=== PATIENT | male | born 1965 | race Caucasian/White ===

== ENCOUNTER 2017-06-07 20:04 | Emergency (ER) | payer SELFPAY ==
[~2017-06-07] VITALS: Ht 170.2 cm; Wt 72.0 kg
[~2017-06-07 20:04] MED LIST: ALL220TA PO; CYCL5TAB PO; LORTA5 PO; NAPR550 PO
[2017-06-07 20:06] VITALS: BP 151/76; PULSE 79; RESP 14; TEMP 98.3; O2SAT 97
[2017-06-07] MEDS ORDERED: SODIUM CHLORIDE 0.9% IV ONE (20:45)
[2017-06-07] MEDS ORDERED: TETANUS/DIPHTHERIA TOXOID ADULT 0.5 ML VIAL IM ONE (20:45)
[2017-06-07] MEDS ORDERED: CEFUROXIME IV ONE (20:45)
[2017-06-07] MEDS ORDERED: CEFU1TAB20 PO (20:52)
[2017-06-07] MEDS ORDERED: HYDR-3533 PO ×2 (20:52→21:20)
--- NOTE | 2017-06-07 21:16 | PD ---
HPI Chief Complaint: Bite or Sting Time Seen by Provider: 20:40 Travel History International Travel<30 days: No Contact w/Intl Traveler<30days: No Traveled to known affect area: No History of Present Illness HPI 52-year-old male patient presents to the emergency department for evaluation Bite that occurred 3 days ago. The puncture pedro is on his right hand on the proximal aspect of the volar index finger. Patient complains of swelling and pain to the right hand. Patient is right-hand dominant. Patient denies any fevers, chills, malaise. Patient denies abdominal pain, nausea, vomiting or diarrhea. Patient denies chest pain or shortness of breath. Patient denies any other swelling or pain besides the right hand. The animal is known to the patient as belonging to his neighbor. Patient states he knows the animal and there is no risk for rabies. PFSH Past Medical History Diminished Hearing: No Immunizations Current: Yes Tetanus Vaccination: Never Vaccinated Influenza Vaccination: No Past Surgical History Tonsillectomy: Yes Social History Alcohol Use: No Tobacco Use: Yes (2 PPD) Substance Use: No Allergies-Medications (Allergen,Severity, Reaction): Coded Allergies: penicillin G (Unverified Allergy, Unknown, 06/07/17) Reported Meds & Prescriptions Reported Meds & Active Scripts Active Lortab (Hydrocodone-Acetaminophen) 5-325 Mg Tab 1 Tab PO Q6H PRN Cefuroxime (Cefuroxime Axetil) 500 Mg Tab 500 Mg PO BID 10 Days Review of Systems Except as stated in HPI: all other systems reviewed are Neg Physical Exam Narrative GENERAL: Well-nourished, well-developed 52-year-old male patient. Well- appearing in no acute distress. SKIN: Focused skin assessment warm/dry. HEAD: Normocephalic. Atraumatic EYES: No scleral icterus. No injection or drainage. NECK: Supple, trachea midline. No JVD or lymphadenopathy. CARDIOVASCULAR: Regular rate and rhythm without murmurs, gallops, or rubs. RESPIRATORY: Breath sounds equal bilaterally. No accessory muscle use. GASTROINTESTINAL: Abdomen soft, non-tender, nondistended. MUSCULOSKELETAL: Slight swelling noted to right hand. 2 puncture taylor noted to right index finger both located on the proximal aspect one on the dorsal side and the other on the volar side. Active range of motion with slight pain. 5 out of 5 strength in right hand noted. No signs of trauma ulnar, forearm, or or medial nerve. Sensation to right hand intact. Data Data Last Documented VS Orders Orders Hand, Complete ([id number]) (06/07/17 ) Wound Culture And Gram Stain (06/07/17 20:37) Tetanus/Diphtheria Tox Adult (Tetanus/Di (06/07/17 20:45) Cefuroxime Inj (Zinacef Inj) (06/07/17 20:45) MDM Medical Decision Making Medical Screen Exam Complete: Yes Emergency Medical Condition: Yes Medical Record Reviewed: Yes Differential Diagnosis Cat Bite versus cellulitis versus Pasteurella multocida infection Narrative Course 52-year-old male patient presents to emergency room for evaluation of a cat bite that occurred approximately 3 days ago. The puncture of the bite is located on the proximal area of the volar aspect of the right index finger. The patient denies any fevers, chills or malaise. The patient denies any chest pain or shortness of breath. The patient denies any abdominal pain, nausea, vomiting or diarrhea. There is no other pain or swelling to any other aspects of the body except the right hand where the bite occurred. The patient tried to self treat the swelling of his right hand by making a small incision with a razor earlier today and pouring peroxide into the incision. The small incision that was made with a razor is on the proximal aspect on the dorsal side of the right index finger. X-ray of the right hand, wound culture obtained with I&D ordered and pending. Cefuroxime 1500mg IV antibiotics ordered. Tetanus vaccine updated. Patient is discharged home with prescription for cefuroxime 500 mg twice a day 10 days for infection and prescription for Lortab prescription for pain management. Patient instructed to take full course of antibiotics as prescribed. Patient given strict instructions to return to emergency department with any signs or symptoms of infection due to the high risk of infection associated with bites. Patient states he understands and is comfortable with the plan of care. Procedures Procedure Narrative INCISION AND DRAINAGE OF BITE WOUND: The area was prepped and was sterilely draped. A subcutaneous wheal of 1% Xylocaine with a total number 1.5 mL was used to anesthetize the area properly. A number 11 scalpel was used to make a 0.5 cm incision across the proximal aspect of the volar index finger of the right hand. Cultures were obtained. Scripts Hydrocodone-Acetaminophen (Lortab) 5-325 Mg Tab 1 TAB PO Q6H Y for PAIN, #12 TAB 0 Refills Prov: Marisa Portillo DO 06/07/17 Cefuroxime (Cefuroxime) 500 Mg Tab 500 MG PO BID for Infection for 10 Days, #20 TAB 0 Refills Prov: Debora Callahan 06/07/17 Debora Callahan Jun 07, 2017 21:16
--- NOTE | 2017-06-07 21:41 | RADRPT ---
EXAM DATE/TIME: 06/07/2017 21:32 [facility] COMPARISON: No previous studies available for comparison. INDICATIONS : Inflammation and pain on 2nd digit, right hand. Patient was bit by cat on 2nd digit, near PIPJ. MEDICAL HISTORY : None. SURGICAL HISTORY : None. ENCOUNTER: Initial ACUITY: 4 - 6 days PAIN SCORE: 8/10 LOCATION: Right Hand, 2nd PIPJ FINDINGS: Three view examination of the right hand demonstrates no soft tissue swelling, dislocation, or fractu re. The carpal bones appear intact. The interphalangeal and metacarpophalangeal joints are intact. Bony mineralization is normal. Chronic appearing arthropathy with flexion deformity seen of the little finger distal interphalangeal joint. CONCLUSION: No fracture, subluxation or radiopaque foreign body of the pointer finger. Chico Mojica MD on June 07, 2017 at 21:39 Board Certified Radiologist. This report was verified electronically.
== END 2017-06-07 22:31 | disposition home or self-care (01) ==
LOC: EDTENT 20:04
DX: S61.250A Open bite of right index finger without damage to nail, initial encounter (principal); W55.01XA Bitten by cat, initial encounter; Z23 Encounter for immunization
CPT/HCPCS: 10060; 73130; 87070; 87205; 90471; 90714; 96374; 99284; J0697; 96372

== ENCOUNTER 2018-06-04 20:34 | Inpatient (IN) ==
--- NOTE | 2018-06-04 22:17 | XR ---
EXAM DATE: 06/04/2018 10:13 PM EDT AGE/SEX: 53 years / Male INDICATIONS: . Short of breath, evaluate for mass. CLINICAL DATA: This is the patient's initial encounter. Patient reports that signs and symptoms have been present for 3 months and indicates a pain score of 3/10. MEDICAL/SURGICAL HISTORY: None. None. COMPARISON: No prior exams available for comparison. FINDINGS: PA and lateral views the chest were obtained and demonstrate areas of dense consolidation in the righ t upper lobe with multiple cavitary regions. The consolidation abuts the minor fissure. There is apic al pleural parenchymal changes also present. There are nodular areas of consolidation and apparent ca vitation in the left upper lobe as well. On the lateral examination there are small cavitary The hear t size is within normal limits. The bony structures are intact. CONCLUSION: Dense consolidation in the right upper lobe with cavitary areas as well as nodular areas with cavitar y appearance in the left lung is well. Evaluation with chest CT with contrast is recommended. Electronically signed by: Dima Reid MD 06/04/2018 10:16 PM EDT
[2018-06-04 23:19] LABS: Baso % (Auto) 0.4 % (0.0-2.0); Eos % (Auto) 0.2 % (0.0-4.0); Hematocrit 37.8 % (39.0-51.0); Hemoglobin 12.6 gm/dL (13.0-17.0); Lymph # (Auto) 0.6 th/mm3 (1.0-4.8); Lymph % (Auto) 5.8 % (9.0-44.0); Mean Corpuscular HGB Conc 33.2 % (32.0-36.0); Mean Corpuscular Hemoglobin 27.6 pg (27.0-34.0); Mean Corpuscular Volume 83.1 fL (80.0-100.0); Mean Platelet Volume 7.7 fL (7.0-11.0); Mono # (Auto) 0.3 th/mm3 (0.0-0.9); Mono % (Auto) 2.5 % (0.0-8.0); Neut # (Auto) 9.2 th/mm3 (1.8-7.7); Neut % (Auto) 91.1 % (16.0-70.0); Platelet Count 534 th/mm3 (150-450); Red Blood Count 4.55 mil/mm3 (4.50-5.90); Red Cell Distribution Width 16.2 % (11.6-17.2); White Blood Count 10.1 th/mm3 (4.0-11.0)
[2018-06-04 23:44] LABS: Alanine Aminotransferase 18 U/L (12-78); Albumin 3.1 g/dL (3.4-5.0); Anion Gap 9 meq/L (5-15); Aspartate Aminotransferase 14 U/L (15-37); Blood Urea Nitrogen 9 mg/dL (7-18); Calcium 9.2 mg/dL (8.5-10.1); Carbon Dioxide 27.1 meq/L (21.0-32.0); Chloride 102 meq/L (98-107); Glomerular Filtration Rate 86 mL/min (>89); Glucose,Random 118 mg/dL (74-106); Potassium 3.6 meq/L (3.5-5.1); Sodium 138 meq/L (136-145)
[2018-06-04 23:49] LABS: Alkaline Phosphatase 142 U/L (45-117); Total Protein 7.6 g/dL (6.4-8.2)
--- NOTE | 2018-06-05 02:49 | CT ---
EXAM DATE: 06/05/2018 2:17 AM EDT AGE/SEX: 53 years / Male INDICATIONS: Abnormal chest x-ray. Right upper lung mass. CLINICAL DATA: This is the patient's initial encounter. Patient reports that signs and symptoms have been present for 1 day and indicates a pain score of 0/10. MEDICAL/SURGICAL HISTORY: None. None. RADIATION DOSE: 4.11 CTDI (mGy) COMPARISON: No prior exams available for comparison. TECHNIQUE: Multiple contiguous axial images were obtained through the chest during bolus infusion of 75 ml Omnipaque 350 (iohexol) nonionic water-soluble contrast as a cumulative dose for multiple exa ms. Images were obtained in suspended respiration using multiple row detector helical technique. U sing automated exposure control and adjustment of the mA and/or kV according to patient size, radiati on dose was kept as low as reasonably achievable to obtain optimal diagnostic quality images. DICOM format image data is available electronically for review and comparison. FINDINGS: There is a dense area of consolidation as well as cavitation in the right upper lobe measuring up to 12.9 cm in cephalocaudad extent and about 5.4 cm transverse diameter. A small cavitary mass measuring 2.1 cm is present in the superior segment right lower lobe. There is multifocal patchy airspace dise ase in both lungs and fairly extensive distal airway disease. There is some cylindrical bronchiectasi s with peribronchial thickening. Distribution of disease is predominantly upper lobe. There is mild t o moderate underlying emphysema. There is right-sided hilar and some mediastinal adenopathy measuring up to around 2 cm in diameter. N o filling defects identified in the pulmonary arteries. No significant effusion. No acute findings in the upper abdomen. CONCLUSION: 1. Multifocal lung consolidation with large area of cavitation in the right upper lobe. There is als o underlying cylindrical bronchiectasis, peribronchial thickening and extensive distal airway disease . Primary differential diagnosis is infection, especially tuberculosis or atypical mycobacterial dise ase. Neoplasm much less likely. Emphysema present. Electronically signed by: Kirk Jerome MD 06/05/2018 2:48 AM EDT
--- NOTE | 2018-06-05 03:30 | ED ---
HPI General Chief complaint: Respiratory Symptoms Stated complaint: dec sent/cough Time Seen by Provider: 06/05/18 00:39 History of Present Illness HPI narrative: Patient is a 53-year-old man who says for 7 months he has had shortness of breath night sweats somewhat in the beginning back in October when he first noticed that his lungs felt more irritated he has one point took Augmentin 875 Augmentin twice daily for 9 days he reports he said he got better but now progressively has gotten worse and his losing weight he went to an urgent care today they did an x-ray and said that he should come to the ER for further treatment. Patient arrives saying they had sent him from urgent care for a CAT scan. Patient has no fever he tells how he painted a deck with chemicals back in October and at that time is when he first noticed his lungs were getting worse and then losing weight. He denies being in skilled nursing he denies being in the denies any risk factor for TB he has not traveled overseas. He does report weight loss. In the ER he is satting 99 on room heart rate is normal he is afebrile he has no other significant past medical history and denies risk factors for TB... CT chest is ordered Related Data Home Medications Medication Instructions Recorded Confirmed No Known Home Medications 06/05/18 06/05/18 Allergies Allergy/AdvReac Type Severity Reaction Status Date / Time penicillin G Allergy Unknown Vomiting Unverified 06/04/18 21:46 [facility] Medical History Medical History Medical history unknown (Acute) Surgical History Surgical History Hx of tonsillectomy (Acute) Social History Social History Substance History: No History of Abuse Smoking Status: Current every day smoker Tobacco Type: Cigarettes How Often Do You Have a Drink Containing Alcohol: Monthly or less Recent Travel in [facility] within the Last 8 Weeks: No Recent Out of Country Travel within the Last 8 Weeks: No Immunization History Tetanus Immunization: >5 Years Hx Influenza Vaccine This Season: No Exam Narrative Exam Narrative: GENERAL: pt is awake alert no distress SKIN: Warm and dry. HEAD: Atraumatic. Normocephalic. EYES: Pupils equal and round. No scleral icterus. No injection or drainage. ENT: No nasal bleeding or discharge. Mucous membranes pink and moist. NECK: Trachea midline. No JVD. CARDIOVASCULAR: Regular rate and rhythm. RESPIRATORY: No accessory muscle use. right lung cracks and wheeze heard O2 sat 98 on RA GASTROINTESTINAL: Abdomen soft, non-tender, nondistended. Hepatic and splenic margins not palpable. MUSCULOSKELETAL: Extremities without clubbing, cyanosis, or edema. No obvious deformities. NEUROLOGICAL: Awake and alert. No obvious cranial nerve deficits. Motor grossly within normal limits. Five out of 5 muscle strength in the arms and legs. Normal speech. PSYCHIATRIC: Appropriate mood and affect; insight and judgment normal. Course Initial Documented Vital Signs Temperature 98 F 06/04/18 21:41 Pulse Rate 69 06/04/18 21:41 Respiratory Rate 16 06/04/18 21:41 Blood Pressure 120/58 L 06/04/18 21:41 Pulse Oximetry 98 06/04/18 21:41 Last Documented Vital Signs Temperature 98 F 06/04/18 21:41 Pulse Rate 50 L 06/05/18 05:09 Respiratory Rate 12 06/05/18 05:09 Blood Pressure 107/75 06/05/18 05:09 Pulse Oximetry 98 06/05/18 05:09 Medical Decision Making MDM Narrative Medical decision making narrative: CT shows what to be a cavitation lesion with surrounding blebs highly suspicious for TB is what the reading is less likely lung CA patient is made aware started on Levaquin IV and azithromycin patient is put in isolation for droplet precaution and isolation . Need consult pulmonary and acid fast resp aspirate to r/u TB Medical Screen Exam Complete: Yes Emergency Medical Condition: Yes Differential Diagnosis Differential Diagnosis: Patient is a 53-year-old male coming in saying that he is having shortness of breath cough losing weight differential diagnosis includes lung CA versus tuberculosis versus other type of staph strep cavitation lesion lung atypical pneumonias infectious versus Lab Data Result diagrams: 06/04/18 22:20 06/04/18 22:20 Lab Results 06/04/18 06/04/18 Range/Units 22:20 22:20 WBC 10.1 (4.0-11.0) th/mm3 RBC 4.55 (4.50-5.90) mil/mm3 Hgb 12.6 L (13.0-17.0) gm/dL Hct 37.8 L (39.0-51.0) % MCV 83.1 (80.0-100.0) fL MCH 27.6 (27.0-34.0) pg MCHC 33.2 (32.0-36.0) % RDW 16.2 (11.6-17.2) % Plt Count 534 H (150-450) th/mm3 MPV 7.7 (7.0-11.0) fL Neut % (Auto) 91.1 H (16.0-70.0) % Lymph % (Auto) 5.8 L (9.0-44.0) % Carver % (Auto) 2.5 (0.0-8.0) % Eos % (Auto) 0.2 (0.0-4.0) % Baso % (Auto) 0.4 (0.0-2.0) % Neut # (Auto) 9.2 H (1.8-7.7) th/mm3 Lymph # (Auto) 0.6 L (1.0-4.8) th/mm3 Carver # (Auto) 0.3 (0.0-0.9) th/mm3 Eos # (Auto) 0.0 (0.0-0.4) th/mm3 Baso # (Auto) 0.0 (0.0-0.2) th/mm3 WBC Differential . Differential Comment Auto diff final Sodium 138 (136-145) meq/L Potassium 3.6 (3.5-5.1) meq/L Chloride 102 (98-107) meq/L Carbon Dioxide 27.1 (21.0-32.0) meq/L Anion Gap 9 (5-15) meq/L BUN 9 (7-18) mg/dL Creatinine 0.92 (0.60-1.30) mg/dL Estimated GFR 86 L (>89) mL/min Random Glucose 118 H (74-106) mg/dL Calcium 9.2 (8.5-10.1) mg/dL Total Bilirubin 0.3 (0.2-1.0) mg/dL AST 14 L (15-37) U/L ALT 18 (12-78) U/L Alkaline Phosphatase 142 H (45-117) U/L Troponin I Less than 0.02 L (0.02-0.05) ng/mL Total Protein 7.6 (6.4-8.2) g/dL Albumin 3.1 L (3.4-5.0) g/dL Imaging Data Radiologist's impression: Chest X-Ray 06/04/18 21:49 CONCLUSION: Dense consolidation in the right upper lobe with cavitary areas as well as nodular areas with cavitary appearance in the left lung is well. Evaluation with chest CT with contrast is recommended. Chest CT 06/05/18 01:13 CONCLUSION: 1. Multifocal lung consolidation with large area of cavitation in the right upper lobe. There is also underlying cylindrical bronchiectasis, peribronchial thickening and extensive distal airway disease. Primary differential diagnosis is infection, especially tuberculosis or atypical mycobacterial disease. Neoplasm much less likely. Emphysema present. Discharge Plan Discharge Disposition Patient Disposition: 30 Still Patient Physicians Team ED Provider: Tino Gerard Primary Care Provider: Primary Care Elyssa Wynne Rxs /Orders / Referrals /Forms Prescriptions: No Action No Known Home Medications RF: 0 Discharge Interventions Interventions: Vital Signs Last Done: 06/05/18 05:09 Status ED Status: With Doctor
[2018-06-05] MEDS ORDERED: Azithromycin Inj 500 MG in Sodium Chlor 0.9% Inj 250 ML IV.SIG SCH (04:00)
[2018-06-05] MEDS ORDERED: Acetaminophen 325 MG Tablet PO PRN (06:17)
[2018-06-05] MEDS ORDERED: Tuberculin PPD 5 UNITS/0.1 ML Syringe I-DERMAL ONE (08:00)
[2018-06-05] MEDS: Sod Chloride 0.9% Inj 1,000 ML IV.CONT SCH ×2 (08:13→19:24)
--- NOTE | 2018-06-05 13:10 | P.CONID ---
History of Present Illness Service: Infectious Disease Consult date: 06/05/18 Requesting Physician: Torres Sahu Reason for Consult: Evaluation and Mment of cavitatory lung disease ? Tuberculosis. Primary Care Provider: No Primary Care Physician History of Present Illness: Mr. Wan is a 53-year-old male who is the patient has been associated with exposure to chemicals such as those need for epoxy and other special types of samira and driveways. He also has worked with cement in the past. Patient denies any travel outside country for pleasure or any services. He reports no contact with patients with tuberculosis. He endorses a 1 ppd history for at least 40 years. He denies prior h/o COPD or lung problems. He denies any family history of lung problems. With this background patient presents to the ED due to an abnormal CXR. Patient reports for last 6 months or so he has been having shortness of breath, cough with expectoration and feeling unwell. He complains of productive cough of yellow phlegm, shortness of breath with wheezing, intermittent fever and chills, diaphoresis, anorexia, low energy and weight loss of about 20-25 pounds. No history of personal h/o tuberculosis, IV drug abuse or incarceration. 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 A day prior to admission he went to the urgent care because of worsening cough with throat irritation and was sent to the emergency room because of abnormal chest x-ray which showed cavitation in the right apical area. Infectious Disease was consulted for evaluation and Mment of cavitary lung disease possible tuberculosis or secondary infection. Review of Systems All other systems reviewed negative except as stated in HPI PMF - History History Provided By: Patient - Medical History Medical History: Medical History (Last Reviewed 06/05/18 @ 16:38 by Torres Sahu MD) Medical history unknown - Surgical History Surgical History: Surgical History (Last Reviewed 06/05/18 @ 16:38 by Torres Sahu MD) Hx of tonsillectomy - Family History Family History: Family History (Last Updated 06/05/18 @ 16:38 by Torres Sahu MD) Other No pertinent family history - Tobacco History Tobacco Use In Past 30 Days: Yes Smoking Status: Current every day smoker Tobacco Type: Cigarettes - Alcohol History How Often Do You Have a Drink Containing Alcohol: Monthly or less - Substance Use History Substance History: No History of Abuse - Travel History Recent Travel in the [place] Within the Last 8 Weeks: No Recent Travel Out of the Country Within the Last 8 Weeks: No - Immunization History Tetanus Immunization: >5 Years Hx Influenza Vaccine This Season: No Medications and Allergies Active Medications: Active Medications Acetaminophen (Tylenol) 650 mg PO Q4H PRN PRN Reason: Temp > 100.4 Albuterol (Albuterol Neb (Prn)) 2.5 mg NEB Q2HR NEB PRN PRN Reason: SHORTNESS OF BREATH Albuterol (Duoneb Neb (Mesfin)) 1 ampul NEB QID NEB MESFIN Sodium Chloride (Ns Inj) 1,000 mls @ 100 mls/hr IV.CONT .Q10H MESFIN Stop: 06/05/18 23:59 Last Admin: 06/05/18 08:13 Dose: 100 mls/hr Dextrose/Sodium Chloride (D5w/1/2 Ns Inj) 1,000 mls @ 30 mls/hr IV.CONT .Q24H MESFIN Ondansetron HCl (Zofran Inj) 4 mg IV.PUSH Q6H PRN PRN Reason: NAUSEA OR VOMITING Skin Test Antigens (Skin Test Result) 1 each OTHER Q24H MESFIN Stop: 06/08/18 08:01 Sodium Chloride (Ns Flush) 2 ml IV.FLUSH BID [facility] Allergies Allergy/AdvReac Type Severity Reaction Status Date / Time penicillin G Allergy Unknown Vomiting Verified 06/05/18 07:55 Home Medications Medication Instructions Recorded Confirmed Type No Known Home Medications 06/05/18 06/05/18 History Exam Vital signs: Vital Signs 06/04/18 21:41 06/05/18 00:43 06/05/18 05:09 Temperature 98 F Pulse Rate 69 51 L 50 L Respiratory Rate 16 16 12 Blood Pressure 120/58 L 127/72 107/75 Pulse Oximetry 98 99 98 06/05/18 08:14 06/05/18 11:00 Temperature 97.6 F Pulse Rate 54 L 58 L Respiratory Rate 20 18 Blood Pressure 106/66 106/56 L Pulse Oximetry 99 98 Intake & Output 06/04/18 06/05/18 06/05/18 18:59 06:59 18:59 Intake Total 150 / 150 250 / 250 Output Total 100 / 100 Balance 150 / 150 150 / 150 Weight 63.503 kg Intake: IV 150 / 150 250 / 250 Azithromycin Inj 500 MG In NS 250 / 250 Inj 250 ML @ 250 mls/hr IV.SIG Q24H [facility] Rx#:[id number] Levaquin 750 mg Premix Inj 150 150 / 150 ML @ 100 mls/hr IV.SIG ONCE ONE Rx#:[id number] Output: Urine 100 / 100 Other: # Voids 1 Narrative: GENERAL: Thin built well-developed, not in acute distress SKIN: Cool and dry, no generalized rash No cervical or axillary LN aniceto. HEAD: Atraumatic. Normocephalic. No temporal or scalp tenderness. EYES: Pupils equal round and reactive. Scleral icterus. No injection or drainage. No petechia ENT: Nothing abnormal detected NECK: Trachea midline. Supple, nontender, no meningeal signs. CARDIOVASCULAR: HS audible. RESPIRATORY: Occ wheezing. Bilateral AE decreased in bases. GASTROINTESTINAL: Abdomen soft nontender. MUSCULOSKELETAL: Extremities without clubbing, cyanosis. NEUROLOGICAL: Alert oriented 3. Nonfocal. Psych cooperative IV line sites ok. Results - Labs CBC & Chem 7: 06/05/18 13:12 06/04/18 22:20 Labs: Laboratory Results - last 24 hr 06/04/18 06/04/18 22:20 22:20 WBC 10.1 RBC 4.55 Hgb 12.6 L Hct 37.8 L MCV 83.1 MCH 27.6 MCHC 33.2 RDW 16.2 Plt Count 534 H MPV 7.7 Neut % (Auto) 91.1 H Lymph % (Auto) 5.8 L [place] % (Auto) 2.5 Eos % (Auto) 0.2 Baso % (Auto) 0.4 Neut # (Auto) 9.2 H Lymph # (Auto) 0.6 L [place] # (Auto) 0.3 Eos # (Auto) 0.0 Baso # (Auto) 0.0 WBC Differential . Differential Comment Auto diff final Sodium 138 Potassium 3.6 Chloride 102 Carbon Dioxide 27.1 Anion Gap 9 BUN 9 Creatinine 0.92 Estimated GFR 86 L Random Glucose 118 H Calcium 9.2 Total Bilirubin 0.3 AST 14 L ALT 18 Alkaline Phosphatase 142 H Troponin I Less than 0.02 L Total Protein 7.6 Albumin 3.1 L - Imaging Impressions Chest X-Ray 06/04/18 21:49 CONCLUSION: Dense consolidation in the right upper lobe with cavitary areas as well as nodular areas with cavitary appearance in the left lung is well. Evaluation with chest CT with contrast is recommended. Chest CT 06/05/18 01:13 CONCLUSION: 1. Multifocal lung consolidation with large area of cavitation in the right upper lobe. There is also underlying cylindrical bronchiectasis, peribronchial thickening and extensive distal airway disease. Primary differential diagnosis is infection, especially tuberculosis or atypical mycobacterial disease. Neoplasm much less likely. Emphysema present. Assessment and Plan - Plan Cavitary lung disease differential diagnosis includes emphysematous lungs with secondary infection, tuberculosis, possible atypical mycobacterial infections or other fungal infections such as mold. Rule out tuberculosis Possible secondary pneumonia from pooling of bacteria in the cavities Chronic smoking history History of occupational exposure to epoxy as well as other agents. History of weight loss, decreased appetite, and an indolent infection, rule out malignancy Recommendations Discontinue all antibiotics as he is clinically stable Azithromycin is one of 1 of the agents for treatment of REJI Discontinue all antituberculosis medications If clinical change overnight start Cefepime IV and Vanco IV, Levaquin. marv De Jesus Pulm: he will get bronchoscopy. Asked him to add PCP stain request by pathology in addition to all usual cultures Consented pt for HIV he agrees Check Hepatitis profile. If possible get sputum for AFB stain and culture and send for MTB PCR to help with isolation status. Continue airborne isolation for now. Check CRP, ESR. Follow cultures Follow clinically. dw pt differential diagnosis and plan marv De Jesus
--- NOTE | 2018-06-05 13:30 | ECG ---
Date Performed: 06/04/2018 Time Performed: 22:29:15 PTAGE: 53 years EKG: SINUS BRADYCARDIA WITH SINUS ARRHYTHMIA BORDERLINE RIGHT AXIS DEVIATION BORDERLINE ECG NO PREVIOUS TRACING DOCTOR: Olman Kirkland Interpretating Date/Time 06/05/2018 13:28:44
[2018-06-05 14:02] LABS: Baso % (Auto) 0.2 % (0.0-2.0); Hematocrit 36.7 % (39.0-51.0); Hemoglobin 11.8 gm/dL (13.0-17.0); Lymph # (Auto) 0.8 th/mm3 (1.0-4.8); Lymph % (Auto) 12.8 % (9.0-44.0); Mean Corpuscular Hemoglobin 26.9 pg (27.0-34.0); Mean Corpuscular Volume 83.8 fL (80.0-100.0); Mean Platelet Volume 7.4 fL (7.0-11.0); Mono # (Auto) 0.5 th/mm3 (0.0-0.9); Mono % (Auto) 7.5 % (0.0-8.0); Neut # (Auto) 4.8 th/mm3 (1.8-7.7); Neut % (Auto) 79.5 % (16.0-70.0); Platelet Count 517 th/mm3 (150-450); Red Blood Count 4.38 mil/mm3 (4.50-5.90); Red Cell Distribution Width 16.1 % (11.6-17.2); White Blood Count 6.1 th/mm3 (4.0-11.0)
[2018-06-05] MEDS ORDERED: Benzonatate 100 MG Capsule PO PRN (16:35)
--- NOTE | 2018-06-05 16:44 | P.HP ---
History of Present Illness Primary Care Physician: No Primary Care Physician Chief Complaint: Cough History of Present Illness: This is a 53-year-old male with history of tobacco use. He presents to the emergency department because of abnormal chest x-ray. [facility] for the past 5 months has been battling respiratory symptoms. He complains of productive cough of yellow phlegm, shortness of breath with wheezing, intermittent fever and chills, diaphoresis, anorexia, low energy and weight loss of about 20-25 pounds. No history of tuberculosis, sick contacts, recent travel and incarceration. 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 Yesterday he went to the urgent care because of worsening cough with throat irritation and was sent to the emergency room because of abnormal chest x-ray which showed cavitation in the right apical area. All other systems reviewed negative Inpatient Certification: I certify that the inpatient services were ordered in accordance with Medicare regulations governing the order. This includes certification that hospital inpatient services are reasonable and necessary and in the case of services not specified as inpatient-only under 42 CFR 419.22(n), that they are appropriately provided as inpatient services in accordance to with the 2-midnight benchmark under 43 CFR 412.3(e) Estimated Total Length of Stay (Days): 2 Plans for Post Hospital Care: Home Review of Systems All other systems reviewed negative except as stated in [facility] - History History Provided By: Patient - Medical History Medical History: Medical History (Last Reviewed 06/05/18 @ 16:38 by Torres Sahu MD) Medical history unknown - Surgical History Surgical History: Surgical History (Last Reviewed 06/05/18 @ 16:38 by Torres Sahu MD) Hx of tonsillectomy - Family History Family History: Family History (Last Updated 06/05/18 @ 16:38 by Torres Sahu MD) Other No pertinent family history - Tobacco History Tobacco Use In Past 30 Days: Yes Smoking Status: Current every day smoker Tobacco Type: Cigarettes - Alcohol History How Often Do You Have a Drink Containing Alcohol: Monthly or less - Substance Use History Substance History: No History of Abuse - Travel History Recent Travel in the [place] Within the Last 8 Weeks: No Recent Travel Out of the Country Within the Last 8 Weeks: No - Immunization History Tetanus Immunization: >5 Years Hx Influenza Vaccine This Season: No Medications and Allergies Active Medications: Active Medications Acetaminophen (Tylenol) 650 mg PO Q4H PRN PRN Reason: Temp > 100.4 Albuterol (Albuterol Neb (Prn)) 2.5 mg NEB Q2HR NEB PRN PRN Reason: SHORTNESS OF BREATH Albuterol (Duoneb Neb (Mesfin)) 1 ampul NEB QID NEB MESFIN Last Admin: 06/05/18 13:24 Dose: Not Given Sodium Chloride (Ns Inj) 1,000 mls @ 100 mls/hr IV.CONT .Q10H [facility] Stop: 06/05/18 23:59 Last Admin: 06/05/18 08:13 Dose: 100 mls/hr Dextrose/Sodium Chloride (D5w/1/2 Ns Inj) 1,000 mls @ 30 mls/hr IV.CONT .Q24H [facility] Ondansetron HCl (Zofran Inj) 4 mg IV.PUSH Q6H PRN PRN Reason: NAUSEA OR VOMITING Skin Test Antigens (Skin Test Result) 1 each OTHER Q24H [facility] Stop: 06/08/18 08:01 Sodium Chloride (Ns Flush) 2 ml IV.FLUSH BID [facility] Allergies Allergy/AdvReac Type Severity Reaction Status Date / Time penicillin G Allergy Unknown Vomiting Verified 06/05/18 07:55 Home Medications Medication Instructions Recorded Confirmed Type No Known Home Medications 06/05/18 06/05/18 History Exam Vital signs: Vital Signs 06/04/18 21:41 06/05/18 00:43 06/05/18 05:09 Temperature 98 F Pulse Rate 69 51 L 50 L Respiratory Rate 16 16 12 Blood Pressure 120/58 L 127/72 107/75 Pulse Oximetry 98 99 98 06/05/18 08:14 06/05/18 11:00 06/05/18 13:00 Temperature 97.6 F Pulse Rate 54 L 58 L 59 L Respiratory Rate 20 18 16 Blood Pressure 106/66 106/56 L 109/61 Pulse Oximetry 99 98 98 Intake & Output 06/04/18 06/05/18 06/05/18 18:59 06:59 18:59 Intake Total 150 / 150 250 / 250 Output Total 100 / 100 Balance 150 / 150 150 / 150 Weight 63.503 kg Intake: IV 150 / 150 250 / 250 Azithromycin Inj 500 MG In NS 250 / 250 Inj 250 ML @ 250 mls/hr IV.SIG Q24H [facility] Rx#:[id number] Levaquin 750 mg Premix Inj 150 150 / 150 ML @ 100 mls/hr IV.SIG ONCE ONE Rx#:[id number] Output: Urine 100 / 100 Other: # Voids 1 Narrative: GENERAL: Well-developed in no distress SKIN: Warm and dry. HEAD: Atraumatic. Normocephalic. EYES: Pupils equal and round. No scleral icterus. No injection or drainage. ENT: No nasal bleeding or discharge. Mucous membranes pink and moist. NECK: Trachea midline. No JVD. CARDIOVASCULAR: Regular rate and rhythm. RESPIRATORY: No accessory muscle use. Clear to auscultation. Decreased breath sounds equal bilaterally. GASTROINTESTINAL: Abdomen soft, non-tender, nondistended. MUSCULOSKELETAL: Extremities without clubbing, cyanosis, or edema. No obvious deformities. NEUROLOGICAL: Awake and alert. No obvious cranial nerve deficits. Motor grossly within normal limits. Five out of 5 muscle strength in the arms and legs. Normal speech. PSYCHIATRIC: Appropriate mood and affect; insight and judgment normal. Results - Labs CBC & Chem 7: 06/05/18 13:12 06/04/18 22:20 Labs: Laboratory Results - last 24 hr 06/04/18 06/04/18 06/05/18 22:20 22:20 13:12 WBC 10.1 6.1 RBC 4.55 4.38 L Hgb 12.6 L 11.8 L Hct 37.8 L 36.7 L MCV 83.1 83.8 MCH 27.6 26.9 L MCHC 33.2 32.0 RDW 16.2 16.1 Plt Count 534 H 517 H MPV 7.7 7.4 Neut % (Auto) 91.1 H 79.5 H Lymph % (Auto) 5.8 L 12.8 [place] % (Auto) 2.5 7.5 Eos % (Auto) 0.2 0.0 Baso % (Auto) 0.4 0.2 Neut # (Auto) 9.2 H 4.8 Lymph # (Auto) 0.6 L 0.8 L [place] # (Auto) 0.3 0.5 Eos # (Auto) 0.0 0.0 Baso # (Auto) 0.0 0.0 WBC Differential . . Differential Comment Auto diff final Auto diff final APTT Sodium 138 Potassium 3.6 Chloride 102 Carbon Dioxide 27.1 Anion Gap 9 BUN 9 Creatinine 0.92 Estimated GFR 86 L Random Glucose 118 H Calcium 9.2 Total Bilirubin 0.3 AST 14 L ALT 18 Alkaline Phosphatase 142 H Troponin I Less than 0.02 L Total Protein 7.6 Albumin 3.1 L 06/05/18 13:12 WBC RBC Hgb Hct MCV MCH MCHC RDW Plt Count MPV Neut % (Auto) Lymph % (Auto) [place] % (Auto) Eos % (Auto) Baso % (Auto) Neut # (Auto) Lymph # (Auto) [place] # (Auto) Eos # (Auto) Baso # (Auto) WBC Differential Differential Comment APTT 31.4 H Sodium Potassium Chloride Carbon Dioxide Anion Gap BUN Creatinine Estimated GFR Random Glucose Calcium Total Bilirubin AST ALT Alkaline Phosphatase Troponin I Total Protein Albumin - Imaging Impressions Chest X-Ray 06/04/18 21:49 CONCLUSION: Dense consolidation in the right upper lobe with cavitary areas as well as nodular areas with cavitary appearance in the left lung is well. Evaluation with chest CT with contrast is recommended. Chest CT 06/05/18 01:13 CONCLUSION: 1. Multifocal lung consolidation with large area of cavitation in the right upper lobe. There is also underlying cylindrical bronchiectasis, peribronchial thickening and extensive distal airway disease. Primary differential diagnosis is infection, especially tuberculosis or atypical mycobacterial disease. Neoplasm much less likely. Emphysema present. Caprini VTE Risk Assessment Caprini VTE Risk Assessment: No/Low Risk (score <= 1) Caprini Risk Assessment Model: Point Value = 1 Point Value = 2 Point Value = 3 Point Value = 5 Age 41-60 Minor surgery BMI > 25 kg/m2 Swollen legs Varicose veins or History of unexplained or recurrent spontaneous Oral contraceptives or hormone replacement Sepsis (< 1 month) Serious lung disease, including pneumonia (< 1 month) Abnormal pulmonary function Acute myocardial infarction Congestive heart failure (< 1 month) History of inflammatory bowel disease Medical patient at bed rest Age 61-74 Arthroscopic surgery Major open surgery (> 45 min) Laparoscopic surgery (> 45 min) Malignancy Confined to bed (> 72 hours) Immobilizing plaster cast Central venous access Age >= 75 History of VTE Family history of VTE Factor V Leiden Prothrombin [id number] Lupus anticoagulant Anticardiolipin antibodies Elevated serum homocysteine Heparin-induced thrombocytopenia Other congenital or acquired thrombophilia Stroke (< 1 month) Elective arthroplasty Hip, pelvis, or leg fracture Acute spinal cord injury (< 1 month) Prophylaxis Regimen: Total Risk Factor Score Risk Level Prophylaxis Regimen 0-1 Low Early ambulation 2 Moderate Order ONE of the following: *Sequential Compression Device (SCD) *Heparin 5000 units SQ BID 3-4 Higher Order ONE of the following medications: *Heparin 5000 units SQ TID *Enoxaparin/Lovenox 40 mg SQ daily (WT < 150 kg, CrCl > 30 mL/min) *Enoxaparin/Lovenox 30 mg SQ daily (WT < 150 kg, CrCl > 10-29 mL/min) *Enoxaparin/Lovenox 30 mg SQ BID (WT < 150 kg, CrCl > 30 mL/min) AND/OR *Sequential Compression Device (SCD) 5 or more Highest Order ONE of the following medications: *Heparin 5000 units SQ TID (Preferred with Epidurals) *Enoxaparin/Lovenox 40 mg SQ daily (WT < 150 kg, CrCl > 30 mL/min) *Enoxaparin/Lovenox 30 mg SQ daily (WT < 150 kg, CrCl > 10-29 mL/min) *Enoxaparin/Lovenox 30 mg SQ BID (WT < 150 kg, CrCl > 30 mL/min) AND *Sequential Compression Device (SCD) Assessment and Plan - Plan This is a 53-year-old male smoker who presents with chronic respiratory symptoms consisting of productive cough of yellow phlegm, shortness of breath with wheezing, intermittent fever and chills, diaphoresis, anorexia and weight loss. Chest x-ray independently reviewed by me showed right lung consolidation with cavitation. Chest CT with multifocal lung consolidation with large area of cavitation in the right upper lobe. Underlying cylindrical bronchiectasis, peribronchial thickening and extensive distal airway disease. Pulmonary TB suspect. Patient will be admitted for further evaluation and treatment. He will be in isolation. Obtain sputum studies for AFB, MTB PCR sputum and consult infectious disease and pulmonary service, will need bronchoscopy. COPD exacerbation. Tobacco cessation. Nebulization. DVT prophylaxis with SCD.
--- NOTE | 2018-06-05 19:12 | MB ---
cc: Rick Lobato MD DATE: 06/05/2018 REASON FOR CONSULTATION: Bilateral cavitary lung infiltrates. HISTORY OF PRESENT ILLNESS: This is a 53-year-old white male who has been admitted through the emergency room with complaints of persistent cough, yellow expectoration, shortness of breath, wheezing, or orthopnea. The patient was also running some fevers and was sweating at night and had lost weight up to 25 pounds in the past 4 months. He states that his appetite has been poor. 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 These included urethane, epoxy, and other building materials. He was in a closed environment while he was exposed to the fumes, and he was not wearing any respirator at the time. He states that his present complaints started after using that material. He has had no hemoptysis, but his chest x-ray that was done upon admission showed evidence of bilateral lung infiltrates with cavitation in the right apex as well as the left lung zone. PAST MEDICAL HISTORY: Significant for tonsillectomy remotely. Denies any history for lung disease that he knows of. He has no history of hypertension or diabetes. FAMILY HISTORY: Unknown. The patient states he was from his parents at a young age. HABITS: The patient smokes about a pack per day, has done so for over 35 years. Drinks alcohol moderately. Works at a construction site. ALLERGIES: NONE LISTED. REVIEW OF SYSTEMS: The patient was lost weight. He has postnasal drip, cough, wheezing. He has night sweats and fevers. He has epigastric distress, nausea, loss of appetite. He has had no GI bleed. No hemoptysis. No leg or calf muscle pains. He has no urinary symptoms or flank pains. There is no depression or anxiety. Complains of generalized weakness and malaise. PHYSICAL EXAMINATION: GENERAL: This is an averagely built, middle-aged, white male who is pale, in no acute distress. VITAL SIGNS: Blood pressure 125/60, pulse is 72, respirations 16, temperature 98.2. HEENT: Head is normocephalic. Pupils are reactive and equal. Tongue moist. Throat is injected. Nasal mucosa is clear. NECK: Supple, no bruits or thyroid enlargement or lymphadenopathy. CHEST: Distant breath sounds. There are few coarse wheezes scattered in the left lung field. HEART: The heart sounds are regular, S1 and S2 with no murmur. No S3. ABDOMEN: Soft, scaphoid, without masses. No organomegaly or tenderness. Bowel sounds are active. EXTREMITIES: No lesions, no edema, no calf tenderness. Reflexes are 1+ with no gross motor deficits. Cranial nerves are grossly intact. SKIN: No lesions observed. IMPRESSION: 1. Bilateral cavitary pulmonary infiltrates, rule out atypical infections like tuberculosis or fungal disease. 2. Possible chronic obstructive pulmonary disease with emphysema. 3. Rule out malignancy. 4. Nicotine dependency. PLAN: The patient has been advised that a bronchoscopy will be scheduled to evaluate the lower airways and get bronchial washings and the brushings. Nebulized DuoNeb solution added four times daily. He is already on antibiotic therapy that was started and will be monitored by the infectious disease service. We will get a skin test for TB, and a coagulation profile will be ordered. Pulmonary function study to be done when he is clinically stable. IV fluids for hydration today. The risks of bronchoscopy including bleeding, pneumothorax, respiratory failure, etc., were discussed. Blood gas study will be done on room air and oxygen supplementation added at 2 liters nasal cannula. Thank you, Dr. Sahu, for this consultation. V. Natalie Lobato MD VJD/chris , 06:25 PM , 06:39 PM
[2018-06-05] MEDS: guaiFENesin 600 MG ER Tablet PO SCH (21:00)
[2018-06-06 08:27] LABS: Baso % (Auto) 0.3 % (0.0-2.0); Eos % (Auto) 0.3 % (0.0-4.0); Hematocrit 36.4 % (39.0-51.0); Hemoglobin 11.8 gm/dL (13.0-17.0); Lymph # (Auto) 1.4 th/mm3 (1.0-4.8); Lymph % (Auto) 14.9 % (9.0-44.0); Mean Corpuscular HGB Conc 32.5 % (32.0-36.0); Mean Corpuscular Hemoglobin 27.2 pg (27.0-34.0); Mean Corpuscular Volume 83.6 fL (80.0-100.0); Mean Platelet Volume 7.6 fL (7.0-11.0); Mono # (Auto) 0.6 th/mm3 (0.0-0.9); Mono % (Auto) 6.9 % (0.0-8.0); Neut # (Auto) 7.3 th/mm3 (1.8-7.7); Neut % (Auto) 77.6 % (16.0-70.0); Platelet Count 505 th/mm3 (150-450); Red Blood Count 4.36 mil/mm3 (4.50-5.90); Red Cell Distribution Width 16.2 % (11.6-17.2); White Blood Count 9.4 th/mm3 (4.0-11.0)
[2018-06-06 08:44] LABS: Anion Gap 10 meq/L (5-15); Blood Urea Nitrogen 18 mg/dL (7-18); Carbon Dioxide 26.6 meq/L (21.0-32.0); Chloride 106 meq/L (98-107); Glomerular Filtration Rate Greater Than 89 mL/min (>89); Glucose,Random 78 mg/dL (74-106); Potassium 4.1 meq/L (3.5-5.1); Sodium 143 meq/L (136-145)
[2018-06-06] MEDS ORDERED: Sodium Chlor 0.9% Inj 500 ML IV.SIG ONE (09:00)
[2018-06-06] MEDS: guaiFENesin 600 MG ER Tablet PO SCH ×2 (09:16→20:36)
[2018-06-06] MEDS: Dextrose 5%/NaCl 0.45% Inj 1,000 ML IV.CONT SCH ×2 (09:50→14:31)
[2018-06-06 10:31] LABS: Hepatitits B Surface Antigen Nonreactive (Nonreactive)
--- NOTE | 2018-06-06 10:32 | P.PNIM ---
Subjective Interval history: Patient reports is feeling okay. No shortness of breath at rest. No chest pain. Mild cough. Physical Exam Vital signs: Vital Signs 06/05/18 11:00 06/05/18 13:00 06/05/18 16:00 Temperature 97.5 F L Pulse Rate 58 L 59 L 44 L Respiratory Rate 18 16 20 Blood Pressure 106/56 L 109/61 109/55 L Pulse Oximetry 98 98 97 06/05/18 20:00 06/05/18 21:02 06/06/18 00:00 Temperature 97.3 F L 97.7 F Pulse Rate 83 52 L Respiratory Rate 18 Blood Pressure 134/61 93/56 L Pulse Oximetry 98 96 98 06/06/18 00:27 06/06/18 04:00 06/06/18 08:00 Temperature 97.8 F 97.6 F Pulse Rate 50 L 50 L 59 L Respiratory Rate 18 17 Blood Pressure 95/63 L 92/53 L 91/51 L Pulse Oximetry 98 97 06/06/18 10:20 Temperature 96.4 F L Pulse Rate 52 L Respiratory Rate 18 Blood Pressure 103/58 L Pulse Oximetry 100 Intake & Output 06/05/18 06/06/18 06/06/18 18:59 06:59 18:59 Intake Total 250 / 250 1000 / 1000 Output Total 100 / 100 Balance 150 / 150 1000 / 1000 Weight 56.2 kg 54.4 kg Intake: IV 250 / 250 1000 / 1000 NS Inj 1,000 ML @ 100 mls/hr IV 1000 / 1000 .CONT .Q10H [facility] Rx#:[id number] Azithromycin Inj 500 MG In NS 250 / 250 Inj 250 ML @ 250 mls/hr IV.SIG Q24H [facility] Rx#:[id number] Output: Urine 100 / 100 Other: # Voids 3 2 Date of Last Bowel Movement 06/05/18 Weight On Admission 56.2 kg Narrative: GENERAL: This is a well-nourished, well-developed patient, in no apparent distress. CARDIOVASCULAR: Normal rate and regular rhythm without murmurs, gallops, or rubs. RESPIRATORY: Good respiratory efforts. Breath sounds equal and clear to auscultation bilaterally. GASTROINTESTINAL: Abdomen soft, non-tender, non-distended. Normal active bowel sounds MUSCULOSKELETAL: Extremities without cyanosis, or edema. NEURO: Alert & Oriented x4 to person, place, time, situation. Moves all ext x4 PSYCH: Appropriate mood and affect. Results - Labs CBC & Chem 7: 06/06/18 05:22 06/06/18 05:22 Laboratory Results - last 24 hr 06/05/18 06/05/18 06/06/18 13:12 13:12 05:22 WBC 6.1 RBC 4.38 L Hgb 11.8 L Hct 36.7 L MCV 83.8 MCH 26.9 L MCHC 32.0 RDW 16.1 Plt Count 517 H MPV 7.4 Neut % (Auto) 79.5 H Lymph % (Auto) 12.8 [place] % (Auto) 7.5 Eos % (Auto) 0.0 Baso % (Auto) 0.2 Neut # (Auto) 4.8 Lymph # (Auto) 0.8 L [place] # (Auto) 0.5 Eos # (Auto) 0.0 Baso # (Auto) 0.0 WBC Differential . Differential Comment Auto diff final APTT 31.4 H Sodium Potassium Chloride Carbon Dioxide Anion Gap BUN Creatinine Estimated GFR Random Glucose Calcium C-Reactive Protein Hep Bs Antigen Nonreactive 06/06/18 06/06/18 05:22 05:22 WBC 9.4 D RBC 4.36 L Hgb 11.8 L Hct 36.4 L MCV 83.6 MCH 27.2 MCHC 32.5 RDW 16.2 Plt Count 505 H MPV 7.6 Neut % (Auto) 77.6 H Lymph % (Auto) 14.9 [place] % (Auto) 6.9 Eos % (Auto) 0.3 Baso % (Auto) 0.3 Neut # (Auto) 7.3 Lymph # (Auto) 1.4 [place] # (Auto) 0.6 Eos # (Auto) 0.0 Baso # (Auto) 0.0 WBC Differential . Differential Comment Auto diff final APTT Sodium 143 Potassium 4.1 Chloride 106 Carbon Dioxide 26.6 Anion Gap 10 BUN 18 Creatinine 0.74 Estimated GFR Greater than 89 Random Glucose 78 Calcium 9.0 C-Reactive Protein 1.30 H Hep Bs Antigen Assessment and Plan - Plan 53-year-old male smoker who presents with chronic respiratory symptoms consisting of productive cough of yellow phlegm, shortness of breath with wheezing, intermittent fever and chills, diaphoresis, anorexia and weight loss. Chest x-ray revealed right lung consolidation with cavitation. Chest CT with multifocal lung consolidation with large area of cavitation in the right upper lobe. Underlying cylindrical bronchiectasis, peribronchial thickening and extensive distal airway disease. Differential diagnoses include TB, REJI, organizing bacterial infection. - Appreciate pulmonology and infectious disease following. Patient is status post bronchoscopy. Bronchial washing cultures pending. Sputum studies for AFB, MTB PCR sputum. -HIV and hepatitis negative. COPD: Supplemental oxygen as needed. Nebs as needed. DVT prophylaxis with SCD. Discharge Planning: Continue workup.
[2018-06-06 11:04] LABS: Hepatitis A IgM Antibody Nonreactive (Nonreactive)
--- NOTE | 2018-06-06 11:48 | ECG ---
Date Performed: 06/05/2018 Time Performed: 17:43:06 PTAGE: 53 years EKG: SINUS BRADYCARDIA BORDERLINE ECG PREVIOUS TRACING : 06/04/2018 22.29 DOCTOR: Eh Geiger Interpretating Date/Time 06/06/2018 11:47:33
--- NOTE | 2018-06-06 11:59 | MP ---
cc: Rick Lobato MD DATE OF OPERATION: 06/06/2018 PROCEDURE PERFORMED: Fiberoptic bronchoscopy with biopsy, brushings, and washings. PREOPERATIVE DIAGNOSIS: Cavitary right upper lobe lung infiltrate. POSTOPERATIVE DIAGNOSIS: Cavitary right upper lobe lung infiltrate. ANESTHESIA: General. SURGEON: Rick Lobato MD PROCEDURE AND FINDINGS: The patient was intubated under general anesthesia, following which, the Olympus IT 180 bronchoscope was used to visualize the bronchi. The scope was advanced via the endotracheal tube into the trachea; trachea, miri appeared normal. The scope was then advanced into the left mainstem and left upper lobe segmental bronchi. The left upper lobe segmental bronchi demonstrated mucoid secretions with mild endobronchitis, but no endobronchial lesions were seen. Saline washings were done. The scope was then advanced into the left lower lobe segmental bronchi. These bronchi demonstrated mucoid secretions and moderate endobronchitis, but no endobronchial mass was seen. Saline washings and lavage were done. The scope was then advanced into the right mainstem and right upper lobe segmental bronchi. The right upper lobe segmental bronchi demonstrated moderate endobronchitis with mucosal ridging and mucosal edema with thick mucoid secretions and plugs. These were suctioned out. The underlying bronchi showed moderate endobronchitis but no endobronchial mass was seen. Brushings were done for cytology and micro from the right upper lobe area. Biopsies were done as well. Minimal bleeding was observed, controlled with saline solution and saline lavage was carried out from the right upper lobe. The scope was also advanced into the right middle and right lower lobe segmental bronchi. These bronchi demonstrated mild endobronchitis with mucoid secretions and mucus plugs. These were suctioned out. Saline washings and lavage were done. No endobronchial mass was seen in the right lower lobe area. The procedure was then terminated. The patient tolerated the procedure well. Rick Lobato MD VJD/eileen , 11:31 AM , 11:38 AM
--- NOTE | 2018-06-06 12:22 | XR ---
EXAM DATE: 06/06/2018 12:19 PM EDT AGE/SEX: 53 years / Male INDICATIONS: Post bronchoscopy. Patient has a cough. CLINICAL DATA: This is the patient's initial encounter. Patient reports that signs and symptoms have been present for 1 day and indicates a pain score of 0/10. MEDICAL/SURGICAL HISTORY: None. Tonsillectomy. COMPARISON: [facility] [place] CHEST W CONTRAST, 06/05/2018. . FINDINGS: There are abnormal nodular opacities seen throughout both lungs with a large cavitary mass in the rig ht upper lobe with thick wall. The heart size is normal. The osseous structures are intact. CONCLUSION: Stable appearance of the chest. Electronically signed by: Jhony Whaley MD 06/06/2018 12:20 PM EDT
[2018-06-07] MEDS: guaiFENesin 600 MG ER Tablet PO SCH ×2 (08:21→22:28)
--- NOTE | 2018-06-07 09:42 | P.PNIM ---
Subjective Interval history: Patient reports is feeling okay. Occasional cough. Breathing comfortably. Physical Exam Vital signs: Vital Signs 06/06/18 10:20 06/06/18 11:38 06/06/18 11:45 Temperature 96.4 F L 97.7 F Pulse Rate 52 L 79 75 Respiratory Rate 18 22 20 Blood Pressure 103/58 L 91/55 L 95/54 L Pulse Oximetry 100 97 100 06/06/18 12:00 06/06/18 12:15 06/06/18 16:00 Temperature 97.3 F L Pulse Rate 65 63 58 L Respiratory Rate 18 18 17 Blood Pressure 97/58 L 97/56 L 98/54 L Pulse Oximetry 98 99 100 06/06/18 17:15 06/06/18 19:34 06/06/18 19:45 Temperature 97.5 F L Pulse Rate 60 70 60 Respiratory Rate 14 15 18 Blood Pressure 111/61 Pulse Oximetry 98 100 06/06/18 20:00 06/07/18 00:00 06/07/18 04:00 Temperature 98.5 F 98.2 F Pulse Rate 59 L 59 L Respiratory Rate 18 18 Blood Pressure 101/55 L 91/54 L Pulse Oximetry 100 98 96 06/07/18 07:49 06/07/18 08:00 Temperature 98 F Pulse Rate 60 53 L Respiratory Rate 14 16 Blood Pressure 99/56 L Pulse Oximetry 96 Intake & Output 06/06/18 06/07/18 06/07/18 18:59 06:59 18:59 Intake Total 3000 / 3000 Balance 3000 / 3000 Weight 54.6 kg Intake: IV 1500 / 1500 D5W/1/2 NS Inj 1,000 ML @ 30 1000 / 1000 mls/hr IV.CONT .Q24H [facility] Rx#: [id number] NS Inj 500 ML @ As Directed IV. 500 / 500 SIG BOLUS ONE Rx#:[id number] Oral 1500 / 1500 Other: # Voids 2 1 Date of Last Bowel Movement 06/06/18 06/06/18 Narrative: GENERAL: This is a well-nourished, well-developed patient, in no apparent distress. CARDIOVASCULAR: Normal rate and regular rhythm without murmurs, gallops, or rubs. RESPIRATORY: Good respiratory efforts. Breath sounds equal and clear to auscultation bilaterally. Results - Labs CBC & Chem 7: 06/06/18 05:22 06/06/18 05:22 Laboratory Results - last 24 hr 06/05/18 06/06/18 06/06/18 14:52 05:22 05:22 Hepatitis A IgM Ab Nonreactive Hep Bs Antigen Nonreactive Hep B Core IgM Ab Nonreactive Hep C IgG Ab Nonreactive HIV 1&2 Ab/P24 Ag 4thGn Nonreactive M.tuberculosis DNA (PCR) Detected H Rifampin Resistance Not detected 06/06/18 14:52 Hepatitis A IgM Ab Hep Bs Antigen Hep B Core IgM Ab Hep C IgG Ab HIV 1&2 Ab/P24 Ag 4thGn M.tuberculosis DNA (PCR) Cancelled Rifampin Resistance Cancelled Microbiology 06/06/18 11:21 Bronchial Brushings - Right Upper Lobe Fungal Smear - Final 06/06/18 11:21 Bronchial Washings - Right Upper Lobe Fungal Smear - Final No fungal elements seen 06/06/18 11:21 Bronchial - Right Upper Lobe Gram Stain - Final 06/06/18 10:10 Sputum - Expectorated Sputum Gram Stain - Final - Imaging Impressions Chest X-Ray 06/06/18 11:28 CONCLUSION: Stable appearance of the chest. Assessment and Plan - Plan 53-year-old male smoker who presents with chronic respiratory symptoms consisting of productive cough of yellow phlegm, shortness of breath with wheezing, intermittent fever and chills, diaphoresis, anorexia and weight loss. Chest x-ray revealed right lung consolidation with cavitation. Chest CT with multifocal lung consolidation with large area of cavitation in the right upper lobe. Underlying cylindrical bronchiectasis, peribronchial thickening and extensive distal airway disease. PCR is positive for TB. - Discussed with infectious disease. The patient will be started on TB treatment. The health department will be notified. Discussed with case management. - Appreciate pulmonology and infectious disease following. Patient is status post bronchoscopy. Bronchial washing cultures pending. Sputum studies for AFB, -HIV and hepatitis negative. COPD: Supplemental oxygen as needed. Nebs as needed. DVT prophylaxis with SCD. Discharge Planning: Probable discharge in the next 1-2 days. Needs to ensure the patient can get to be medications.
--- NOTE | 2018-06-07 13:39 | P.PNID ---
Subjective Remarks: Mr. Wan is a 53-year-old male who is the patient has been associated with exposure to chemicals such as those need for epoxy and other special types of samira and driveways. He also has worked with cement in the past. Patient denies any travel outside country for pleasure or any services. He reports no contact with patients with tuberculosis. He endorses a 1 ppd history for at least 40 years. He denies prior h/o COPD or lung problems. He denies any family history of lung problems. With this background patient presents to the ED due to an abnormal CXR. Patient reports for last 6 months or so he has been having shortness of breath, cough with expectoration and feeling unwell. He complains of productive cough of yellow phlegm, shortness of breath with wheezing, intermittent fever and chills, diaphoresis, anorexia, low energy and weight loss of about 20-25 pounds. No history of personal h/o tuberculosis, IV drug abuse or incarceration. 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 A day prior to admission he went to the urgent care because of worsening cough with throat irritation and was sent to the emergency room because of abnormal chest x-ray which showed cavitation in the right apical area. Infectious Disease was consulted for evaluation and Mment of cavitary lung disease possible tuberculosis or secondary infection. Overnight events reviewed No fevers No rash No diarrhea Antibiotics: None Lines: Lines ok Past Medical History: reviewed Allergies/Adverse Reactions: Allergies penicillin G Allergy (Unknown, Verified 06/05/18 07:55) Vomiting Objective Vital Signs 06/06/18 16:00 06/06/18 17:15 06/06/18 19:34 Temperature 97.3 F L Pulse Rate 58 L 60 70 Respiratory Rate 17 14 15 Blood Pressure 98/54 L Pulse Oximetry 100 98 06/06/18 19:45 06/06/18 20:00 06/07/18 00:00 Temperature 97.5 F L 98.5 F Pulse Rate 60 59 L Respiratory Rate 18 18 Blood Pressure 111/61 101/55 L Pulse Oximetry 100 100 98 06/07/18 04:00 06/07/18 07:49 06/07/18 08:00 Temperature 98.2 F 98 F Pulse Rate 59 L 60 53 L Respiratory Rate 18 14 16 Blood Pressure 91/54 L 99/56 L Pulse Oximetry 96 96 06/07/18 12:00 Temperature 98 F Pulse Rate 84 Respiratory Rate 17 Blood Pressure 100/57 L Pulse Oximetry 96 Intake & Output 06/06/18 06/07/18 06/07/18 18:59 06:59 18:59 Intake Total 3000 / 3000 Balance 3000 / 3000 Weight 54.6 kg Intake: IV 1500 / 1500 D5W/1/2 NS Inj 1,000 ML @ 30 1000 / 1000 mls/hr IV.CONT .Q24H [facility] Rx#: [id number] NS Inj 500 ML @ As Directed IV. 500 / 500 SIG BOLUS ONE Rx#:[id number] Oral 1500 / 1500 Other: # Voids 2 1 Date of Last Bowel Movement 06/06/18 06/06/18 06/06/18 11:21 Bronchial Brushings - Right Upper Lobe Fungal Smear - Final 06/06/18 11:21 Bronchial Brushings - Right Upper Lobe Fungal Culture - Pending 06/06/18 11:21 Bronchial Washings - Right Upper Lobe Fungal Smear - Final No fungal elements seen 06/06/18 11:21 Bronchial Washings - Right Upper Lobe Fungal Culture - Pending 06/06/18 11:21 Bronchial - Right Upper Lobe Gram Stain - Final 06/06/18 11:21 Bronchial - Right Upper Lobe Bronchial Culture - Pending 06/06/18 10:10 Sputum - Expectorated Sputum Gram Stain - Final 06/06/18 10:10 Sputum - Expectorated Sputum Sputum Culture - Pending 06/06/18 14:52 Sputum - Expectorated Sputum Acid Fast Bacilli Smear - Pending 06/06/18 14:52 Sputum - Expectorated Sputum Mycobacterial Culture - Pending 06/06/18 11:21 Bronchial Brushings - Right Upper Lobe Bronchial [place] Culture - Pending 06/06/18 11:21 Bronchial Washings - Right Upper Lobe Acid Fast Bacilli Smear - Pending 06/06/18 11:21 Bronchial Washings - Right Upper Lobe Mycobacterial Culture - Pending 06/06/18 11:21 Bronchial Brushings - Right Upper Lobe Acid Fast Bacilli Smear - Pending 06/06/18 11:21 Bronchial Brushings - Right Upper Lobe Mycobacterial Culture - Pending 06/06/18 10:10 Sputum - Expectorated Sputum Acid Fast Bacilli Smear - Pending 06/06/18 10:10 Sputum - Expectorated Sputum Mycobacterial Culture - Pending Lab - Hematology Results 06/05/18 06/06/18 13:12 05:22 WBC 6.1 9.4 D RBC 4.38 L 4.36 L Hgb 11.8 L 11.8 L Hct 36.7 L 36.4 L MCV 83.8 83.6 MCH 26.9 L 27.2 MCHC 32.0 32.5 RDW 16.1 16.2 Plt Count 517 H 505 H MPV 7.4 7.6 Neut % (Auto) 79.5 H 77.6 H Lymph % (Auto) 12.8 14.9 [place] % (Auto) 7.5 6.9 Eos % (Auto) 0.0 0.3 Baso % (Auto) 0.2 0.3 Neut # (Auto) 4.8 7.3 Lymph # (Auto) 0.8 L 1.4 [place] # (Auto) 0.5 0.6 Eos # (Auto) 0.0 0.0 Baso # (Auto) 0.0 0.0 WBC Differential . . Differential Comment Auto diff final Auto diff final Lab - Chemistry Results 06/06/18 05:22 Sodium 143 Potassium 4.1 Chloride 106 Carbon Dioxide 26.6 Anion Gap 10 BUN 18 Creatinine 0.74 Estimated GFR Greater than 89 Random Glucose 78 Calcium 9.0 C-Reactive Protein 1.30 H Imaging: ITS Impressions Chest CT 06/05/18 01:13 CONCLUSION: 1. Multifocal lung consolidation with large area of cavitation in the right upper lobe. There is also underlying cylindrical bronchiectasis, peribronchial thickening and extensive distal airway disease. Primary differential diagnosis is infection, especially tuberculosis or atypical mycobacterial disease. Neoplasm much less likely. Emphysema present. Chest X-Ray 06/06/18 11:28 CONCLUSION: Stable appearance of the chest. Physical Exam: GENERAL: Thin built well-developed, not in acute distress SKIN: Cool and dry, no generalized rash No cervical or axillary LN aniceto. HEAD: Atraumatic. Normocephalic. No temporal or scalp tenderness. EYES: Pupils equal round and reactive. Scleral icterus. No injection or drainage. No petechia ENT: Nothing abnormal detected NECK: Trachea midline. Supple, nontender, no meningeal signs. CARDIOVASCULAR: HS audible. RESPIRATORY: Occ wheezing. Bilateral AE decreased in bases. GASTROINTESTINAL: Abdomen soft nontender. MUSCULOSKELETAL: Extremities without clubbing, cyanosis. NEUROLOGICAL: Alert oriented 3. Nonfocal. Psych cooperative IV line sites ok. Assessment and Plan - Plan Cavitary lung disease differential diagnosis includes emphysematous lungs with secondary infection, tuberculosis, possible atypical mycobacterial infections or other fungal infections such as mold. Rule out tuberculosis Possible secondary pneumonia from pooling of bacteria in the cavities Chronic smoking history History of occupational exposure to epoxy as well as other agents. History of weight loss, decreased appetite, and an indolent infection, rule out malignancy Recommendations Start 4 drug anti TB regimen will need 9-12 months treatment. Follow cultures Follow clinically. Will need Case management help for follow up with health dept. dw Dr.Rimpel Oumar De Jesus
--- NOTE | 2018-06-07 19:20 | P.PN ---
Subjective Interval history: has a cough and some wheezing. Low grade fever Physical Exam Vital signs: Vital Signs 06/06/18 19:34 06/06/18 19:45 06/06/18 20:00 Temperature 97.5 F L Pulse Rate 70 60 Respiratory Rate 15 18 Blood Pressure 111/61 Pulse Oximetry 98 100 100 06/07/18 00:00 06/07/18 04:00 06/07/18 07:49 Temperature 98.5 F 98.2 F Pulse Rate 59 L 59 L 60 Respiratory Rate 18 18 14 Blood Pressure 101/55 L 91/54 L Pulse Oximetry 98 96 06/07/18 08:00 06/07/18 12:00 06/07/18 15:13 Temperature 98 F 98 F Pulse Rate 53 L 84 61 Respiratory Rate 16 17 16 Blood Pressure 99/56 L 100/57 L Pulse Oximetry 96 96 06/07/18 16:00 Temperature 97.9 F Pulse Rate 63 Respiratory Rate 16 Blood Pressure 113/60 Pulse Oximetry 100 Intake & Output 06/07/18 06/07/18 06/08/18 06:59 18:59 06:59 Intake Total 660 / 660 Balance 660 / 660 Weight 54.6 kg Intake: Oral 660 / 660 Other: # Voids 1 5 Date of Last Bowel Movement 06/06/18 06/06/18 # Bowel Movements 0 Narrative: GENERAL: This is a well-nourished, well-developed patient, in no apparent distress. CARDIOVASCULAR: Normal rate and regular rhythm without murmurs, gallops, or rubs. GENERAL: SKIN: Warm and dry. HEAD: Atraumatic. Normocephalic. EYES: Pupils equal and round. No scleral icterus. No injection or drainage. ENT: No nasal bleeding or discharge. Mucous membranes pink and moist. NECK: Trachea midline. No JVD. CARDIOVASCULAR: Regular rate and rhythm. RESPIRATORY: No accessory muscle use. Wheezes in upper chest and occ crackles at bases. Breath sounds equal bilaterally. GASTROINTESTINAL: Abdomen soft, non-tender, nondistended. Hepatic and splenic margins not palpable. MUSCULOSKELETAL: Extremities without clubbing, cyanosis, or edema. No obvious deformities. NEUROLOGICAL: Awake and alert. No obvious cranial nerve deficits. Motor grossly within normal limits. Five out of 5 muscle strength in the arms and legs. Normal speech. PSYCHIATRIC: Appropriate mood and affect; insight and judgment normal. Results - Labs CBC & Chem 7: 06/06/18 05:22 06/06/18 05:22 Laboratory Results - last 24 hr 06/05/18 14:52 M.tuberculosis DNA (PCR) Detected H Microbiology 06/06/18 11:21 Bronchial Washings - Right Upper Lobe Acid Fast Bacilli Smear - Final Acid Fast Bacilli Seen 06/06/18 11:21 Bronchial Washings - Right Upper Lobe Mycobacterial Culture - Preliminary 06/06/18 11:21 Bronchial Brushings - Right Upper Lobe Acid Fast Bacilli Smear - Final No acid fast bacilli seen 06/06/18 10:10 Sputum - Expectorated Sputum Acid Fast Bacilli Smear - Final Acid Fast Bacilli Seen 06/06/18 14:52 Sputum - Expectorated Sputum Acid Fast Bacilli Smear - Final Acid Fast Bacilli Seen 06/06/18 11:21 Bronchial - Right Upper Lobe Gram Stain - Final 06/06/18 11:21 Bronchial - Right Upper Lobe Bronchial Culture - Preliminary No growth in 24 hours 06/06/18 11:21 Bronchial Brushings - Right Upper Lobe Bronchial [place] Culture - Preliminary No growth in 24 hours 06/06/18 10:10 Sputum - Expectorated Sputum Gram Stain - Final 06/06/18 10:10 Sputum - Expectorated Sputum Sputum Culture - Preliminary Heavy growth normal respiratory carlos at 24 hours 06/06/18 11:21 Bronchial Brushings - Right Upper Lobe Fungal Smear - Final 06/06/18 11:21 Bronchial Washings - Right Upper Lobe Fungal Smear - Final No fungal elements seen Assessment and Plan - Assessment (1) COPD (chronic obstructive pulmonary disease) Code(s): J44.9 - Chronic obstructive pulmonary disease, unspecified Status: Acute (2) Multilobar lung infiltrate Code(s): R91.8 - Other nonspecific abnormal finding of lung field Status: Acute (3) Cavitary lesion of lung Code(s): J98.4 - Other disorders of lung Status: Acute (4) Pulmonary tuberculosis with cavitation Code(s): A15.0 - Tuberculosis of lung Status: Acute - Plan 1. Cont antibiotics per ID,4 drugs. 2. Duonebs qid. 3. O2 2 L N/C 4. Robitussin 10 Cc QID PRN 5. await culture and sensitivity from bronch washing
[2018-06-07 19:51] LABS: TB1 Ag minus Nil Result -0.01 IU/mL
[2018-06-08 08:01] LABS: Hematocrit 37.3 % (39.0-51.0); Hemoglobin 12.5 gm/dL (13.0-17.0); Mean Corpuscular HGB Conc 33.5 % (32.0-36.0); Mean Corpuscular Hemoglobin 27.4 pg (27.0-34.0); Mean Corpuscular Volume 81.9 fL (80.0-100.0); Mean Platelet Volume 7.4 fL (7.0-11.0); Platelet Count 492 th/mm3 (150-450); Red Blood Count 4.55 mil/mm3 (4.50-5.90); Red Cell Distribution Width 16.7 % (11.6-17.2); White Blood Count 7.6 th/mm3 (4.0-11.0)
[2018-06-08 08:30] LABS: Alanine Aminotransferase 14 U/L (12-78); Albumin 2.7 g/dL (3.4-5.0); Anion Gap 9 meq/L (5-15); Aspartate Aminotransferase 14 U/L (15-37); Blood Urea Nitrogen 15 mg/dL (7-18); Calcium 8.7 mg/dL (8.5-10.1); Carbon Dioxide 26.9 meq/L (21.0-32.0); Chloride 102 meq/L (98-107); Glomerular Filtration Rate Greater Than 89 mL/min (>89); Glucose,Random 75 mg/dL (74-106); Potassium 4.2 meq/L (3.5-5.1); Sodium 138 meq/L (136-145)
[2018-06-08 08:33] LABS: Alkaline Phosphatase 108 U/L (45-117); Total Protein 6.6 g/dL (6.4-8.2)
[2018-06-08] MEDS: guaiFENesin 600 MG ER Tablet PO SCH ×2 (09:04→21:17)
--- NOTE | 2018-06-08 09:54 | P.PNIM ---
Subjective Interval history: Patient reports he is feeling better. He states he is coughing less. He is eager to leave the hospital. He states he is willing to pay for his TB medication until the health department receives the medications. Per the health department, the medications has been ordered but it may take 7-10 days to receive them. Physical Exam Vital signs: Vital Signs 06/07/18 12:00 06/07/18 15:13 06/07/18 16:00 Temperature 98 F 97.9 F Pulse Rate 84 61 63 Respiratory Rate 17 16 16 Blood Pressure 100/57 L 113/60 Pulse Oximetry 96 100 06/07/18 19:49 06/07/18 20:00 06/08/18 00:00 Temperature 98.5 F 98.5 F Pulse Rate 70 63 55 L Respiratory Rate 16 18 18 Blood Pressure 125/72 106/58 L Pulse Oximetry 96 99 95 06/08/18 04:00 06/08/18 08:00 06/08/18 08:43 Temperature 97.7 F 98.2 F Pulse Rate 55 L 62 Respiratory Rate 18 14 Blood Pressure 106/58 L 106/62 Pulse Oximetry 98 98 96 Intake & Output 06/07/18 06/08/18 06/08/18 18:59 06:59 18:59 Intake Total 660 / 660 Balance 660 / 660 Weight 53.9 kg Intake: Oral 660 / 660 Other: # Voids 5 3 Date of Last Bowel Movement 06/06/18 06/08/18 # Bowel Movements 0 Narrative: GENERAL: This is a well-nourished, well-developed patient, in no apparent distress. CARDIOVASCULAR: Normal rate and regular rhythm without murmurs, gallops, or rubs. RESPIRATORY: Good respiratory efforts. Breath sounds equal and clear to auscultation bilaterally. GASTROINTESTINAL: Abdomen soft, non-tender, non-distended. Normal active bowel sounds MUSCULOSKELETAL: Extremities without cyanosis, or edema. NEURO: Alert & Oriented x4 to person, place, time, situation. Moves all ext x4 PSYCH: Appropriate mood and affect. Results - Labs CBC & Chem 7: 06/08/18 06:57 06/08/18 06:57 Laboratory Results - last 24 hr 06/05/18 06/08/18 06/08/18 10:44 06:57 06:57 WBC 7.6 RBC 4.55 Hgb 12.5 L Hct 37.3 L MCV 81.9 MCH 27.4 MCHC 33.5 RDW 16.7 Plt Count 492 H MPV 7.4 Sodium 138 Potassium 4.2 Chloride 102 Carbon Dioxide 26.9 Anion Gap 9 BUN 15 Creatinine 0.82 Estimated GFR Greater than 89 Random Glucose 75 Calcium 8.7 Total Bilirubin 0.7 Direct Bilirubin 0.2 Indirect Bilirubin 0.5 AST 14 L ALT 14 Alkaline Phosphatase 108 Total Protein 6.6 D Albumin 2.7 L TB (QFT) Gold In Tube Negative TB Test (QFT) Nil 0.02 TB Test Mitogen - Nil 4.86 TB Test Antigen - Nil -0.01 Microbiology 06/06/18 11:21 Bronchial Washings - Right Upper Lobe Acid Fast Bacilli Smear - Final Acid Fast Bacilli Seen 06/06/18 11:21 Bronchial Washings - Right Upper Lobe Mycobacterial Culture - Preliminary 06/06/18 11:21 Bronchial Brushings - Right Upper Lobe Acid Fast Bacilli Smear - Final No acid fast bacilli seen 06/06/18 10:10 Sputum - Expectorated Sputum Acid Fast Bacilli Smear - Final Acid Fast Bacilli Seen 06/06/18 14:52 Sputum - Expectorated Sputum Acid Fast Bacilli Smear - Final Acid Fast Bacilli Seen 06/06/18 11:21 Bronchial - Right Upper Lobe Gram Stain - Final 06/06/18 11:21 Bronchial - Right Upper Lobe Bronchial Culture - Preliminary No growth in 24 hours 06/06/18 11:21 Bronchial Brushings - Right Upper Lobe Bronchial [place] Culture - Preliminary No growth in 24 hours 06/06/18 10:10 Sputum - Expectorated Sputum Gram Stain - Final 06/06/18 10:10 Sputum - Expectorated Sputum Sputum Culture - Preliminary Heavy growth normal respiratory carlos at 24 hours 06/06/18 11:21 Bronchial Brushings - Right Upper Lobe Fungal Smear - Final 06/06/18 11:21 Bronchial Washings - Right Upper Lobe Fungal Smear - Final No fungal elements seen Assessment and Plan - Plan 53-year-old male smoker who presents with chronic respiratory symptoms consisting of productive cough of yellow phlegm, shortness of breath with wheezing, intermittent fever and chills, diaphoresis, anorexia and weight loss. Chest x-ray revealed right lung consolidation with cavitation. Chest CT with multifocal lung consolidation with large area of cavitation in the right upper lobe. Underlying cylindrical bronchiectasis, peribronchial thickening and extensive distal airway disease. 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 - Discussed with infectious disease. The patient was started on treatment with 4 drugs regimen including ethambutol, rifampin, isoniazid, pyrazinamide. He was started on B6 supplements. The health department is on the case and he has signed all the necessary paperwork. The health department will be following him for his treatment. However they will not able to receive medications for another 7-10 days. The patient is willing to pay for his medications for the next 2 weeks until he can receive the supply from the health department. A prescription has been sent to his pharmacy. He was advised that he will not be able to leave the hospital without the medications on hand. He seems to be dedicated to complying with treatment and he understands the need to be strictly compliant with the medications. He will follow-up at the health department to continue treatment. - Appreciate pulmonology and infectious disease following. Patient is status post bronchoscopy. Bronchial washing cultures also positive for AFB -HIV and hepatitis negative. COPD: Supplemental oxygen as needed. Nebs as needed. DVT prophylaxis with SCD. Discharge Planning: Pending arrangements for discharge medications.
[2018-06-09 07:01] LABS: Albumin 2.7 g/dL (3.4-5.0)
[2018-06-09 07:06] LABS: Total Protein 6.7 g/dL (6.4-8.2)
[2018-06-09] MEDS: guaiFENesin 600 MG ER Tablet PO SCH ×2 (10:04→21:46)
--- NOTE | 2018-06-09 13:13 | P.PNIM ---
Subjective Interval history: Patient reports he is feeling better. He is coughing less. Sleeping better. States his pharmacy will be able to deliver the medications on Monday. Physical Exam Vital signs: Vital Signs 06/08/18 15:40 06/08/18 16:00 06/08/18 20:00 Temperature 97.9 F 97.6 F Pulse Rate 72 72 74 Respiratory Rate 18 16 18 Blood Pressure 126/74 110/65 Pulse Oximetry 96 100 06/08/18 21:15 06/09/18 00:00 06/09/18 04:00 Temperature 98.2 F 97.6 F Pulse Rate 83 66 70 Respiratory Rate 20 18 18 Blood Pressure 103/65 106/60 Pulse Oximetry 98 98 97 06/09/18 08:00 06/09/18 08:26 06/09/18 12:00 Temperature 97.8 F 98.1 F Pulse Rate 72 71 71 Respiratory Rate 16 16 14 Blood Pressure 118/60 101/68 Pulse Oximetry 98 97 99 Intake & Output 06/08/18 06/09/18 06/09/18 18:59 06:59 18:59 Weight 52.7 kg Other: # Voids 3 Date of Last Bowel Movement 06/08/18 Narrative: GENERAL: This is a well-nourished, well-developed patient, in no apparent distress. CARDIOVASCULAR: Normal rate and regular rhythm without murmurs, gallops, or rubs. RESPIRATORY: Good respiratory efforts. Breath sounds equal and clear to auscultation bilaterally. Results - Labs CBC & Chem 7: 06/08/18 06:57 06/08/18 06:57 Laboratory Results - last 24 hr 06/09/18 05:19 Total Bilirubin 0.3 Direct Bilirubin 0.1 Indirect Bilirubin 0.2 AST 15 ALT 15 Alkaline Phosphatase 120 H Total Protein 6.7 Albumin 2.7 L Microbiology 06/06/18 11:21 Bronchial - Right Upper Lobe Gram Stain - Final 06/06/18 11:21 Bronchial - Right Upper Lobe Bronchial Culture - Final No growth in 48 hours 06/06/18 11:21 Bronchial Brushings - Right Upper Lobe Bronchial [place] Culture - Final No growth in 48 hours 06/06/18 10:10 Sputum - Expectorated Sputum Gram Stain - Final 06/06/18 10:10 Sputum - Expectorated Sputum Sputum Culture - Final Heavy growth normal respiratory carlos Assessment and Plan - Plan 53-year-old male smoker who presents with chronic respiratory symptoms consisting of productive cough of yellow phlegm, shortness of breath with wheezing, intermittent fever and chills, diaphoresis, anorexia and weight loss. Chest x-ray revealed right lung consolidation with cavitation. Chest CT with multifocal lung consolidation with large area of cavitation in the right upper lobe. Underlying cylindrical bronchiectasis, peribronchial thickening and extensive distal airway disease. 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 - Discussed with infectious disease. The patient was started on treatment with 4 drugs regimen including ethambutol, rifampin, isoniazid, pyrazinamide. He was started on B6 supplements. The health department is on the case and he has signed all the necessary paperwork. The health department will be following him for his treatment. However they will not able to receive medications for another 7-10 days. The patient is willing to pay for his medications for the next 2 weeks until he can receive the supply from the health department. A prescription has been sent to his pharmacy. He was advised that he will not be able to leave the hospital without the medications on hand. He seems to be dedicated to complying with treatment and he understands the need to be strictly compliant with the medications. He will follow-up at the health department to continue treatment. -Check LFTs on Monday. - Appreciate pulmonology and infectious disease following. Patient is status post bronchoscopy. Bronchial washing cultures also positive for AFB -HIV and hepatitis negative. COPD: Supplemental oxygen as needed. Nebs as needed. DVT prophylaxis with SCD. Discharge Planning: Pending arrangements for discharge medications.
[2018-06-09] MEDS: Acetaminophen 325 MG Tablet PO PRN (14:00)
[2018-06-10] MEDS: Acetaminophen 325 MG Tablet PO PRN ×2 (06:14→22:55)
[2018-06-10] MEDS: guaiFENesin 600 MG ER Tablet PO SCH ×2 (08:40→22:54)
--- NOTE | 2018-06-10 11:17 | P.PNIM ---
Subjective Interval history: Patient reports his feeling better. Coughing less. Sleeping better. Physical Exam Vital signs: Vital Signs 06/09/18 12:00 06/09/18 16:00 06/09/18 20:00 Temperature 98.1 F 98.0 F 98.2 F Pulse Rate 71 64 72 Respiratory Rate 14 14 18 Blood Pressure 101/68 118/60 114/73 Pulse Oximetry 99 98 96 06/10/18 00:00 06/10/18 01:32 06/10/18 04:00 Temperature 98.0 F 97.7 F Pulse Rate 60 67 Respiratory Rate 18 18 18 Blood Pressure 110/60 101/61 Pulse Oximetry 98 97 06/10/18 04:57 06/10/18 07:00 06/10/18 08:00 Temperature 97.7 F Pulse Rate 72 Respiratory Rate 20 12 16 Blood Pressure 104/60 Pulse Oximetry 98 Intake & Output 06/09/18 06/10/18 06/10/18 18:59 06:59 18:59 Weight 54.4 kg Other: # Voids 3 Date of Last Bowel Movement 06/09/18 06/09/18 Narrative: GENERAL: This is a well-nourished, well-developed patient, in no apparent distress. CARDIOVASCULAR: Normal rate and regular rhythm without murmurs, gallops, or rubs. RESPIRATORY: Good respiratory efforts. Breath sounds equal and clear to auscultation bilaterally. Results - Labs CBC & Chem 7: 06/08/18 06:57 06/08/18 06:57 Assessment and Plan - Plan 53-year-old male smoker who presents with chronic respiratory symptoms consisting of productive cough of yellow phlegm, shortness of breath with wheezing, intermittent fever and chills, diaphoresis, anorexia and weight loss. Chest x-ray revealed right lung consolidation with cavitation. Chest CT with multifocal lung consolidation with large area of cavitation in the right upper lobe. Underlying cylindrical bronchiectasis, peribronchial thickening and extensive distal airway disease. 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 - Discussed with infectious disease. The patient was started on treatment with 4 drugs regimen including ethambutol, rifampin, isoniazid, pyrazinamide. He was started on B6 supplements. The health department is on the case and he has signed all the necessary paperwork. The health department will be following him for his treatment. However they will not able to receive medications for another 7-10 days. The patient is willing to pay for his medications for the next 2 weeks until he can receive the supply from the health department. A prescription has been sent to his pharmacy. He was advised that he will not be able to leave the hospital without the medications on hand. He seems to be dedicated to complying with treatment and he understands the need to be strictly compliant with the medications. He will follow-up at the health department to continue treatment. -Check LFTs tomorrow. - Plan for discharge tomorrow. Patient will have his medications delivered to his room by [facility]. - Appreciate pulmonology and infectious disease following. Patient is status post bronchoscopy. Bronchial washing cultures also positive for AFB -HIV and hepatitis negative. COPD: Supplemental oxygen as needed. Nebs as needed. DVT prophylaxis with SCD. Discharge Planning: Pending arrangements for discharge medications.
[2018-06-11 07:44] LABS: Alanine Aminotransferase 14 U/L (12-78); Albumin 2.9 g/dL (3.4-5.0); Anion Gap 11 meq/L (5-15); Aspartate Aminotransferase 12 U/L (15-37); Blood Urea Nitrogen 17 mg/dL (7-18); Calcium 9.1 mg/dL (8.5-10.1); Chloride 100 meq/L (98-107); Glomerular Filtration Rate Greater Than 89 mL/min (>89); Glucose,Random 73 mg/dL (74-106); Sodium 136 meq/L (136-145)
[2018-06-11 07:46] LABS: Alkaline Phosphatase 124 U/L (45-117)
[2018-06-11] MEDS: guaiFENesin 600 MG ER Tablet PO SCH (08:18)
--- NOTE | 2018-06-11 11:26 | P.PNIM ---
Subjective Interval history: PATIENT HAS COPD AND TB MAY BE ABLE TO DC TO HOME TODAY IF HEALTH DEPARTMENT AND PHARMACY ARE SET UP FOR MEDICATIONS [facility] RN AND PT AND CM LESS COUGH Physical Exam Vital signs: Vital Signs 06/10/18 13:07 06/10/18 15:50 06/10/18 20:00 Temperature 97.9 F 97.9 F 97.8 F Pulse Rate 61 66 67 Respiratory Rate 16 16 18 Blood Pressure 97/62 L 107/62 126/96 H Pulse Oximetry 99 98 99 06/11/18 00:00 06/11/18 02:37 06/11/18 04:00 Temperature 97.6 F 97.8 F Pulse Rate 60 69 Respiratory Rate 18 18 18 Blood Pressure 118/72 104/62 Pulse Oximetry 98 97 06/11/18 08:00 Temperature 97.6 F Pulse Rate 72 Respiratory Rate 16 Blood Pressure 112/73 Pulse Oximetry 98 Intake & Output 06/10/18 06/11/18 06/11/18 18:59 06:59 18:59 Intake Total 960 / 960 Balance 960 / 960 Weight 53.9 kg Intake: Oral 960 / 960 Other: # Voids 3 2 Date of Last Bowel Movement 06/09/18 06/10/18 06/10/18 # Bowel Movements 2 Narrative: GENERAL: Alert and oriented 3 talkative and cooperative thin appearing male SKIN: Warm and dry. HEAD: Atraumatic. Normocephalic. EYES: Pupils equal and round. No scleral icterus. No injection or drainage. EOMI ENT: No nasal bleeding or discharge. Mucous membranes pink and moist. Tongue is midline NECK: Trachea midline. No JVD. Supple CARDIOVASCULAR: Regular rate and rhythm. S1-S2 no S3 or S4 RESPIRATORY: No accessory muscle use. Clear to auscultation. Breath sounds equal bilaterally. GASTROINTESTINAL: Abdomen soft, non-tender, nondistended. Hepatic and splenic margins not palpable. MUSCULOSKELETAL: Extremities without clubbing, cyanosis, or edema. No obvious deformities. NEUROLOGICAL: Awake and alert. No obvious cranial nerve deficits. Motor grossly within normal limits. Five out of 5 muscle strength in the arms and legs. Normal speech. PSYCHIATRIC: Appropriate mood and affect; insight and judgment normal. Results - Labs CBC & Chem 7: 06/08/18 06:57 06/11/18 05:53 Laboratory Results - last 24 hr 06/11/18 05:53 Sodium 136 Potassium 4.0 Chloride 100 Carbon Dioxide 25.0 Anion Gap 11 BUN 17 Creatinine 0.82 Estimated GFR Greater than 89 Random Glucose 73 L Calcium 9.1 Total Bilirubin 0.4 Direct Bilirubin 0.1 Indirect Bilirubin 0.3 AST 12 L ALT 14 Alkaline Phosphatase 124 H Total Protein 7.0 Albumin 2.9 L - Imaging Chest X-Ray 06/04/18 21:49 CONCLUSION: Dense consolidation in the right upper lobe with cavitary areas as well as nodular areas with cavitary appearance in the left lung is well. Evaluation with chest CT with contrast is recommended. Chest CT 06/05/18 01:13 CONCLUSION: 1. Multifocal lung consolidation with large area of cavitation in the right upper lobe. There is also underlying cylindrical bronchiectasis, peribronchial thickening and extensive distal airway disease. Primary differential diagnosis is infection, especially tuberculosis or atypical mycobacterial disease. Neoplasm much less likely. Emphysema present. Chest X-Ray 06/06/18 11:28 CONCLUSION: Stable appearance of the chest. - Procedures DATE OF OPERATION: 06/06/2018 PROCEDURE PERFORMED: Fiberoptic bronchoscopy with biopsy, brushings, and washings. PREOPERATIVE DIAGNOSIS: Cavitary right upper lobe lung infiltrate. POSTOPERATIVE DIAGNOSIS: Cavitary right upper lobe lung infiltrate. ANESTHESIA: General. SURGEON: Rick Lobato MD PROCEDURE AND FINDINGS: The patient was intubated under general anesthesia, following which, the Olympus IT 180 bronchoscope was used to visualize the bronchi. The scope was advanced via the endotracheal tube into the trachea; trachea, miri appeared normal. The scope was then advanced into the left mainstem and left upper lobe segmental bronchi. The left upper lobe segmental bronchi demonstrated mucoid secretions with mild endobronchitis, but no endobronchial lesions were seen. Saline washings were done. The scope was then advanced into the left lower lobe segmental bronchi. These bronchi demonstrated mucoid secretions and moderate endobronchitis, but no endobronchial mass was seen. Saline washings and lavage were done. The scope was then advanced into the right mainstem and right upper lobe segmental bronchi. The right upper lobe segmental bronchi demonstrated moderate endobronchitis with mucosal ridging and mucosal edema with thick mucoid secretions and plugs. These were suctioned out. The underlying bronchi showed moderate endobronchitis but no endobronchial mass was seen. Brushings were done for cytology and micro from the right upper lobe area. Biopsies were done as well. Minimal bleeding was observed, controlled with saline solution and saline lavage was carried out from the right upper lobe. The scope was also advanced into the right middle and right lower lobe segmental bronchi. These bronchi demonstrated mild endobronchitis with mucoid secretions and mucus plugs. These were suctioned out. Saline washings and lavage were done. No endobronchial mass was seen in the right lower lobe area. The procedure was then terminated. The patient tolerated the procedure well. V. Natalie Lobato MD Assessment and Plan - Plan 53-year-old male smoker who presents with chronic respiratory symptoms consisting of productive cough of yellow phlegm, shortness of breath with wheezing, intermittent fever and chills, diaphoresis, anorexia and weight loss. Chest x-ray revealed right lung consolidation with cavitation. Chest CT with multifocal lung consolidation with large area of cavitation in the right upper lobe. Underlying cylindrical bronchiectasis, peribronchial thickening and extensive distal airway disease. 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 - Discussed with infectious disease. The patient was started on treatment with 4 drugs regimen including ethambutol, rifampin, isoniazid, pyrazinamide. He was started on B6 supplements. The health department is on the case and he has signed all the necessary paperwork. The health department will be following him for his treatment. However they will not able to receive medications for another 7-10 days. The patient is willing to pay for his medications for the next 2 weeks until he can receive the supply from the health department. A prescription has been sent to his pharmacy. He was advised that he will not be able to leave the hospital without the medications on hand. He seems to be dedicated to complying with treatment and he understands the need to be strictly compliant with the medications. He will follow-up at the health department to continue treatment. -Check LFTs tomorrow. - Plan for discharge tomorrow. Patient will have his medications delivered to his room by [facility]. - Appreciate pulmonology and infectious disease following. Patient is status post bronchoscopy. Bronchial washing cultures also positive for AFB -HIV and hepatitis negative. COPD: Supplemental oxygen as needed. Nebs as needed. DVT prophylaxis with SCD. Code Status: FULL CODE Discussed Condition With: RN AND PT AND CM Discharge Planning: HOPEFULLY DC TO HOME TODAY
--- NOTE | 2018-06-11 11:40 | P.DS ---
Date of admission: 06/05/18 05:50 Primary care physician: No Primary Care Physician Attending physician on discharge: Vic Bosch Anticipated date of discharge: 06/11/18 Brief History from admission: This is a 53-year-old male with history of tobacco use. He presents to the emergency department because of abnormal chest x-ray. States for the past 5 months has been battling respiratory symptoms. He complains of productive cough of yellow phlegm, shortness of breath with wheezing, intermittent fever and chills, diaphoresis, anorexia, low energy and weight loss of about 20-25 pounds. No history of tuberculosis, sick contacts, recent travel and incarceration. 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 Yesterday he went to the urgent care because of worsening cough with throat irritation and was sent to the emergency room because of abnormal chest x-ray which showed cavitation in the right apical area. All other systems reviewed negative Patient update on day of discharge: PATIENT HAS COPD AND TB MAY BE ABLE TO DC TO HOME TODAY IF HEALTH DEPARTMENT AND PHARMACY ARE SET UP FOR MEDICATIONS [facility] RN AND PT AND CM LESS COUGH DS: Diagnosis - Discharge Diagnosis (1) COPD (chronic obstructive pulmonary disease) Status: Acute (2) Multilobar lung infiltrate Status: Acute (3) Cavitary lesion of lung Status: Acute (4) Pulmonary tuberculosis with cavitation Status: Acute DS: Medications - Discharge Medications Prescriptions: albuterol sulfate 2.5 mg NEB Q2HR NEB PRN #180 amp PRN Reason: Shortness Of Breath ethambutol [Myambutol] 800 mg PO DAILY #28 tab guaifenesin [Mucinex] 600 mg PO BID #60 tab isoniazid 300 mg PO DAILY #14 tab nebulizers #1 each pyrazinamide 2,000 mg PO DAILY #56 tab pyridoxine (vitamin B6) [Vitamin B-6] 50 mg PO DAILY #30 tab rifampin 300 mg PO Q12HR #28 cap DS: Summary Hospital Course: This is a 53-year-old male with history of tobacco use. He presents to the emergency department because of abnormal chest x-ray. States for the past 5 months has been battling respiratory symptoms. He complains of productive cough of yellow phlegm, shortness of breath with wheezing, intermittent fever and chills, diaphoresis, anorexia, low energy and weight loss of about 20-25 pounds. No history of tuberculosis, sick contacts, recent travel and incarceration. 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 Yesterday he went to the urgent care because of worsening cough with throat irritation and was sent to the emergency room because of abnormal chest x-ray which showed cavitation in the right apical area. All other systems reviewed negative PATIENT HAS COPD AND TB MAY BE ABLE TO DC TO HOME TODAY IF HEALTH DEPARTMENT AND PHARMACY ARE SET UP FOR MEDICATIONS [facility] RN AND PT AND CM LESS COUGH HAD BRONCH HAS POSITIVE TB STARTED ON 5 MEDS DC TO HOME LATER ONCE HAS MEDICATIONS IN HAND - Time Spent with Patient Total time spent providing and/or coordinating discharge services: Greater than 30 minutes - Quality: VTE Deep Vein Thrombosis/Pulmonary Embolism Present on Admission: No Exam Vital signs: Vital Signs 06/10/18 13:07 06/10/18 15:50 06/10/18 20:00 Temperature 97.9 F 97.9 F 97.8 F Pulse Rate 61 66 67 Respiratory Rate 16 16 18 Blood Pressure 97/62 L 107/62 126/96 H Pulse Oximetry 99 98 99 06/11/18 00:00 06/11/18 02:37 06/11/18 04:00 Temperature 97.6 F 97.8 F Pulse Rate 60 69 Respiratory Rate 18 18 18 Blood Pressure 118/72 104/62 Pulse Oximetry 98 97 06/11/18 08:00 Temperature 97.6 F Pulse Rate 72 Respiratory Rate 16 Blood Pressure 112/73 Pulse Oximetry 98 Intake & Output 06/10/18 06/11/18 06/11/18 18:59 06:59 18:59 Intake Total 960 / 960 Balance 960 / 960 Weight 53.9 kg Intake: Oral 960 / 960 Other: # Voids 3 2 Date of Last Bowel Movement 06/09/18 06/10/18 06/10/18 # Bowel Movements 2 Narrative: GENERAL: Alert and oriented 3 talkative and cooperative thin appearing male SKIN: Warm and dry. HEAD: Atraumatic. Normocephalic. EYES: Pupils equal and round. No scleral icterus. No injection or drainage. EOMI ENT: No nasal bleeding or discharge. Mucous membranes pink and moist. Tongue is midline NECK: Trachea midline. No JVD. Supple CARDIOVASCULAR: Regular rate and rhythm. S1-S2 no S3 or S4 RESPIRATORY: No accessory muscle use. Clear to auscultation. Breath sounds equal bilaterally. GASTROINTESTINAL: Abdomen soft, non-tender, nondistended. Hepatic and splenic margins not palpable. MUSCULOSKELETAL: Extremities without clubbing, cyanosis, or edema. No obvious deformities. NEUROLOGICAL: Awake and alert. No obvious cranial nerve deficits. Motor grossly within normal limits. Five out of 5 muscle strength in the arms and legs. Normal speech. PSYCHIATRIC: Appropriate mood and affect; insight and judgment normal. Results Procedures completed during hospitalization: DATE OF OPERATION: 06/06/2018 PROCEDURE PERFORMED: Fiberoptic bronchoscopy with biopsy, brushings, and washings. PREOPERATIVE DIAGNOSIS: Cavitary right upper lobe lung infiltrate. POSTOPERATIVE DIAGNOSIS: Cavitary right upper lobe lung infiltrate. ANESTHESIA: General. SURGEON: Rick Lobato MD PROCEDURE AND FINDINGS: The patient was intubated under general anesthesia, following which, the Olympus IT 180 bronchoscope was used to visualize the bronchi. The scope was advanced via the endotracheal tube into the trachea; trachea, miri appeared normal. The scope was then advanced into the left mainstem and left upper lobe segmental bronchi. The left upper lobe segmental bronchi demonstrated mucoid secretions with mild endobronchitis, but no endobronchial lesions were seen. Saline washings were done. The scope was then advanced into the left lower lobe segmental bronchi. These bronchi demonstrated mucoid secretions and moderate endobronchitis, but no endobronchial mass was seen. Saline washings and lavage were done. The scope was then advanced into the right mainstem and right upper lobe segmental bronchi. The right upper lobe segmental bronchi demonstrated moderate endobronchitis with mucosal ridging and mucosal edema with thick mucoid secretions and plugs. These were suctioned out. The underlying bronchi showed moderate endobronchitis but no endobronchial mass was seen. Brushings were done for cytology and micro from the right upper lobe area. Biopsies were done as well. Minimal bleeding was observed, controlled with saline solution and saline lavage was carried out from the right upper lobe. The scope was also advanced into the right middle and right lower lobe segmental bronchi. These bronchi demonstrated mild endobronchitis with mucoid secretions and mucus plugs. These were suctioned out. Saline washings and lavage were done. No endobronchial mass was seen in the right lower lobe area. The procedure was then terminated. The patient tolerated the procedure well. V. Natalie Lobato MD Completed studies during hospitalization: Laboratory Results WBC 7.6 th/mm3 (4.0-11.0) 06/08/18 06:57 RBC 4.55 mil/mm3 (4.50-5.90) 06/08/18 06:57 Hgb 12.5 gm/dL (13.0-17.0) L 06/08/18 06:57 Hct 37.3 % (39.0-51.0) L 06/08/18 06:57 MCV 81.9 fL (80.0-100.0) 06/08/18 06:57 MCH 27.4 pg (27.0-34.0) 06/08/18 06:57 MCHC 33.5 % (32.0-36.0) 06/08/18 06:57 RDW 16.7 % (11.6-17.2) 06/08/18 06:57 Plt Count 492 th/mm3 (150-450) H 06/08/18 06:57 MPV 7.4 fL (7.0-11.0) 06/08/18 06:57 Neut % (Auto) 77.6 % (16.0-70.0) H 06/06/18 05:22 Lymph % (Auto) 14.9 % (9.0-44.0) 06/06/18 05:22 [place] % (Auto) 6.9 % (0.0-8.0) 06/06/18 05:22 Eos % (Auto) 0.3 % (0.0-4.0) 06/06/18 05:22 Baso % (Auto) 0.3 % (0.0-2.0) 06/06/18 05:22 Neut # (Auto) 7.3 th/mm3 (1.8-7.7) 06/06/18 05:22 Lymph # (Auto) 1.4 th/mm3 (1.0-4.8) 06/06/18 05:22 [place] # (Auto) 0.6 th/mm3 (0.0-0.9) 06/06/18 05:22 Eos # (Auto) 0.0 th/mm3 (0.0-0.4) 06/06/18 05:22 Baso # (Auto) 0.0 th/mm3 (0.0-0.2) 06/06/18 05:22 WBC Differential . 06/06/18 05:22 Differential Comment Auto diff final 06/06/18 05:22 APTT 31.4 sec (24.3-30.1) H 06/05/18 13:12 Sodium 136 meq/L (136-145) 06/11/18 05:53 Potassium 4.0 meq/L (3.5-5.1) 06/11/18 05:53 Chloride 100 meq/L (98-107) 06/11/18 05:53 Carbon Dioxide 25.0 meq/L (21.0-32.0) 06/11/18 05:53 Anion Gap 11 meq/L (5-15) 06/11/18 05:53 BUN 17 mg/dL (7-18) 06/11/18 05:53 Creatinine 0.82 mg/dL (0.60-1.30) 06/11/18 05:53 Estimated GFR Greater than 89 mL/min (>89) 06/11/18 05:53 Random Glucose 73 mg/dL (74-106) L 06/11/18 05:53 Calcium 9.1 mg/dL (8.5-10.1) 06/11/18 05:53 Total Bilirubin 0.4 mg/dL (0.2-1.0) 06/11/18 05:53 Direct Bilirubin 0.1 mg/dL (0.0-0.2) 06/11/18 05:53 Indirect Bilirubin 0.3 mg/dL (0.0-0.8) 06/11/18 05:53 AST 12 U/L (15-37) L 06/11/18 05:53 ALT 14 U/L (12-78) 06/11/18 05:53 Alkaline Phosphatase 124 U/L (45-117) H 06/11/18 05:53 Troponin I Less than 0.02 ng/mL (0.02-0.05) L 06/04/18 22:20 C-Reactive Protein 1.30 mg/dL (0.00-0.30) H 06/06/18 05:22 Total Protein 7.0 g/dL (6.4-8.2) 06/11/18 05:53 Albumin 2.9 g/dL (3.4-5.0) L 06/11/18 05:53 Hepatitis A IgM Ab Nonreactive (Nonreactive) 06/06/18 05:22 Hep Bs Antigen Nonreactive (Nonreactive) 06/06/18 05:22 Hep B Core IgM Ab Nonreactive (Nonreactive) 06/06/18 05:22 Hep C IgG Ab Nonreactive (Nonreactive) 06/06/18 05:22 HIV 1&2 Ab/P24 Ag 4thGn Nonreactive (Nonreactive) 06/06/18 05:22 M.tuberculosis DNA (PCR) Cancelled 06/06/18 14:52 TB (QFT) Gold In Tube Negative (Negative) 06/05/18 10:44 TB Test (QFT) Nil 0.02 IU/mL 06/05/18 10:44 TB Test Mitogen - Nil 4.86 IU/mL 06/05/18 10:44 TB Test Antigen - Nil -0.01 IU/mL 06/05/18 10:44 Rifampin Resistance Cancelled 06/06/18 14:[address] 06/05/18 01:13 CONCLUSION: 1. Multifocal lung consolidation with large area of cavitation in the right upper lobe. There is also underlying cylindrical bronchiectasis, peribronchial thickening and extensive distal airway disease. Primary differential diagnosis is infection, especially tuberculosis or atypical mycobacterial disease. Neoplasm much less likely. Emphysema present. Chest X-Ray 06/06/18 11:28 CONCLUSION: Stable appearance of the chest. Labs on day of discharge: Labs from last 24 hours 06/11/18 05:53 Sodium 136 Potassium 4.0 Chloride 100 Carbon Dioxide 25.0 Anion Gap 11 BUN 17 Creatinine 0.82 Estimated GFR Greater than 89 Random Glucose 73 L Calcium 9.1 Total Bilirubin 0.4 Direct Bilirubin 0.1 Indirect Bilirubin 0.3 AST 12 L ALT 14 Alkaline Phosphatase 124 H Total Protein 7.0 Albumin 2.9 L Preliminary micro results at discharge 06/06/18 11:21 Mycobacterial Culture - Preliminary Bronchial Washings - Right Upper Lobe - Impressions ITS Impressions Chest CT 06/05/18 01:13 CONCLUSION: 1. Multifocal lung consolidation with large area of cavitation in the right upper lobe. There is also underlying cylindrical bronchiectasis, peribronchial thickening and extensive distal airway disease. Primary differential diagnosis is infection, especially tuberculosis or atypical mycobacterial disease. Neoplasm much less likely. Emphysema present. Chest X-Ray 06/06/18 11:28 CONCLUSION: Stable appearance of the chest. Discharge Plan - Discharge Disposition Patient Disposition: 01 Discharge Home - Discharge Condition Condition: Good - Discharge Order Discharge Orders: Discharge Order (Routine); Ordered 06/11/18 Ordered By: Vic Bosch - Discharge Details Anticipated Discharge Date: 06/11/18 Discharge Comment: DC TO HOME AFTER HAS MEDS - Physicians Team Primary Care Provider: Primary Care Rauli,Elyssa Attending Provider: Vic Bosch Other Providers: Abby Medina MD ; [place] Lobato MD
== END 2018-06-11 18:00 | disposition home or self-care (01) ==
LOC: NEPC 20:34 → NEDA 06-05 05:50 → NEDH 06-05 10:44 → N05 06-05 15:15
PROVIDERS: ADMIT Hospitalist; ATTEND Hospitalist